=== PATIENT | female | born 1940 | race Caucasian/White ===

== ENCOUNTER 2017-01-18 11:14 | Inpatient (IN) | payer MEDICARE ==
[2017-01-18 12:43] LABS: ALT (SGPT) Less than 7 U/L (8-55); AST (SGOT) 10 U/L (5-34); Alkaline Phosphatase 142 U/L (40-150); Anion Gap 21 mmol/L (10-20); BUN (Urea Nitrogen) 52 mg/dL (9.8-20.1); Bilirubin, Total 0.4 mg/dL (0.2-1.2); Calc. Creatinine Clearance 0 mL/min (70-130); Calcium 9.5 mg/dL (7.8-10.44); Chloride 109 mmol/L (98-107); Estimated GFR-MDRD 28; Globulin 3.5 g/dL (2.4-3.5); Lipase 48 U/L (8-78); Protein, Total 7.5 g/dL (6.0-8.3)
[2017-01-18 12:44] LABS: Band 24 % (5-11); Hematocrit 39.8 % (36.0-47.0); Mean Platelet Volume 9.6 fL (7.4-10.4); Neutrophil 70 % (42-75); Red Blood Cell (RBC) Count 5.03 mill/uL (4.20-5.40); Vacuoles SLIGHT; White Blood Cell (WBC) Count 18.6 thou/uL (4.8-10.8)
[2017-01-18 12:46] LABS: Carbon Dioxide 8 mmol/L (23-31)
[2017-01-18] MEDS ORDERED: Morphine 2 mg/2ml in 0.9% NaCl PF SYRINGE ONE (13:13)
[2017-01-18 13:30] LABS: Bilirubin Moderate (Negative); Blood, Urine Negative (Negative); Glucose, Urine (Dipstick) Negative (Negative); Ketone, Urine Trace mg/dL (Negative); Nitrite Negative (Negative); Protein, Urine (Dipstick) 30 mg/dL (Neg-Trace); Urobilinogen 0.2 mg/dL (0.2-1.0)
[2017-01-18 13:35] LABS: Bacteria/HPF Rare-Few HPF (None Seen); Hyaline Casts/LPF 4-6 HYALINE CAST LPF (0-3 Hyaline); RBC/HPF 0-3 HPF (0-3); Squamous Epithelial 21-50 HPF (0-3)
[2017-01-18 13:47] LABS: Yeast-All Forms None Seen HPF (None Seen)
[2017-01-18] MEDS ORDERED: Benzonatate 100 MG CAP PO PRN (15:50)
[2017-01-18] MEDS ORDERED: Loratadine 10 MG TAB PO PRN (15:50)
[2017-01-18] MEDS ORDERED: Diabetic Tussin 200 MG/10 ML UDCUP PO PRN (15:50)
[2017-01-18] MEDS ORDERED: Ondansetron HCl/PF 4 MG/2 ML Vial IVP PRN (15:50)
[2017-01-18] MEDS ORDERED: traMADol HCl 50 MG TAB PO PRN (15:50)
[2017-01-18] MEDS ORDERED: Calcium Carbonate 500 MG ChewTAB PO PRN (15:50)
[2017-01-18] MEDS ORDERED: Nitroglycerin 0.4 MG TAB (25 Tab Bottle) SL PRN (15:50)
[2017-01-18] MEDS ORDERED: hydrALAZINE 20 MG/ML VIAL SLOW IVP PRN (15:50)
[2017-01-18] MEDS ORDERED: Mag-Al 1200 mg/1200 mg/30 ML UDCUP PO PRN (15:50)
[2017-01-18] MEDS ORDERED: Acetaminophen 325 MG TAB PO PRN (15:50)
--- NOTE | 2017-01-18 16:02 | CT ---
CT ABDOMEN AND PELVIS WITHOUT CONTRAST: Date: 01/18/17 HISTORY: Crohn's. Worsening pain. COMPARISON: None available. FINDINGS: There is atelectasis in the lung bases. No pericardial effusion. Gallbladder is moderately distended without inflammatory stranding. There are nonobstructive bilateral renal calculi. No hydroureteronephrosis. There is focal aneurysmal dilatation of the infrarenal abdominal aorta which measures up to 3.8 cm. T his is for a length of approximately 3.0 cm. Distal to this, just above the iliac bifurcation, the ao rta is ectatic, measuring up to 2.5 cm. Severe vascular calcification of the aortoiliac system. There is lack of normal haustrations of the colon. Submucosal fatty infiltration of the terminal ileu m, cecum, and ascending colon indicative chronic inflammatory bowel disease. There are also multiple areas of submucosal edema and thickening of the mucosa throughout the ileum and jejunum. Bones are severely osteopenic. There is sclerosis of the femoral heads bilaterally with articular rani face depression. Old compression fracture of T9. IMPRESSION: 1. Nonobstructive bilateral renal calculi. 2. Findings suggeting chronic fibrostenotic Crohn's disease without areas of definite active inflamm ation, although limited without intravenous contrast. 3. Focal aneurysmal dilatation of the distal abdominal aorta measuring up to 3.4 cm for a length of 3.7 cm with a second focus of focal ectasia just at the iliac bifurcation measuring 2.5 cm for a cayla th of 2.0 cm. 4. Severe osteopenia with sclerosis of the femoral heads bilaterally without articular surface colla pse. 5. Old compression fracture of T9. 6. Distention of the gallbladder without secondary signs of acute cholecystitis. This could be seque lae of patient's lack of eating solid food. POS: [facility]
[2017-01-18] MEDS ORDERED: Morphine PF 1 MG/ML SYR IVP PRN (16:03)
--- NOTE | 2017-01-18 16:05 | HP ---
DATE OF ADMISSION: 01/18/2017 PRIMARY CARE PHYSICIAN: Binta Marshall M.D. CHIEF COMPLAINT: Abdominal pain. HISTORY OF PRESENTING ILLNESS: Ms. Robert is a very pleasant 76-year-old female with past medical hi story of Crohn's disease; CREST syndrome as well as hypertension, who presented to the emergency room with the above-mentioned complaint. History is mainly obtained by the patient herself and [facility] medical records have been reviewed. Case has been discussed with the admitting ER physician, Dr. Jesse whitehead. Ms. Robert reports that she has been having increased abdominal pain over the last 5 days. holiday was just yesterday, so she did not come to the hospital and would rather wait. Her abdom inal pain has persisted. She describes it as a sharp pain located mainly in the upper central portio n going in band formation to her back. It is associated with significant diaphoresis and is colicky in nature. She denies any nausea or vomiting. She does have chronic diarrhea and has not noticed an y increased frequency of diarrhea. She has not noticed any blood in her diarrheal stools. She denie s any fever, chills, or any recent illnesses. She is currently not on any medications for her histor y of Crohn's disease. She used to see Gastroenterology, Dr. Ruano in the past, but has not done that in several years. She feels that she was at treatment at one point of time, but nothing has worked a nd for now she is rather controlled with dietary modification. She definitely has decrease in appeti te and is unable to eat much. She has been only drinking Pedialyte for the last 5 or 6 days. She is on Plavix for her history of peripheral vascular disease and has been compliant with her medication. She is also on 5 mg of prednisone daily, which she is also still taking. She denies any dysuria, h ematuria, frequency or urgency. Upon presentation to the emergency room, her blood pressure was in the lower side at 102/63 with hear t rate of 97. She was tender to palpation on examination. A CT scan was ordered for her, which show ed inflammatory changes involving the entire colon as well as mucosal thickening in the ileum in mult iple locations. She has infrarenal abdominal aortic aneurysm measuring 3 cm as well. These findings were consistent with acute Crohn's flare. She has received IV Solu-Medrol in the Emergency Room muriel real with IV fluids and is hemodynamically stable. She is now being admitted for acute Crohn's disease . PAST MEDICAL HISTORY: 1. CREST syndrome. 2. Hypertension. 3. Peripheral arterial disease status post right AKA. 4. History of hypertension. 5. COPD. 6. Chronic kidney disease. 7. Coronary artery disease. 8. Clostridium difficile colitis. PAST SURGICAL HISTORY: 1. Right above the knee amputation. 2. Carotid stenting on the right side. 3. Coronary artery bypass graft. 4. Stenting in both legs. ALLERGIES: PENICILLIN. SOCIAL HISTORY: She is . She used to live with her daughter, but unfortunately her daughter got killed in a car accident last February. Her son has moved to stay with her from [place]. She has no history of drug, tobacco or alcohol abuse, but has been a former smoker. She has smoked for a to dianne above 62 years. FAMILY HISTORY: There is no known family history of any inheritable disorders or diseases. No histo ry of colon cancer. CURRENT MEDICATIONS: As listed in the emergency room record include pentoxifylline 400 mg b.i.d., No rco as needed, gabapentin 300 t.i.d., prednisone 5 mg daily, mirtazapine 15 mg daily, Crestor 5 mg da zohreh, cilostazol 50 mg b.i.d., Lexapro 10 mg daily, Plavix 75 mg daily, aspirin 81 mg daily, lisinopri l 10 mg daily, and tacrolimus topical solution. REVIEW OF SYSTEMS: The following complete review of systems was negative, unless otherwise mentioned in the HPI or below: Constitutional: Weight loss or gain, ability to conduct usual activities. Skin: Rash, itching. Eyes: Double vision, pain. ENT/Mouth: Nose bleeding, neck stiffness, pain, tenderness. Cardiovascular: Palpitations, dyspnea on exertion, orthopnea. Respiratory: Shortness of breath, wheezing, cough, hemoptysis, fever or night sweats. Gastrointestinal: Poor appetite, abdominal pain, heartburn, nausea, vomiting, constipation, or diarr hea. Genitourinary: Urgency, frequency, dysuria, nocturia. Musculoskeletal: Pain, swelling. Neurologic/Psychiatric: Anxiety, depression. Allergy/Immunologic: Skin rash, bleeding tendency. It is negative except for those mentioned in the history and physical. LABORATORY DATA AND IMAGING: Her CBC shows leukocytosis with WBCs at 18.6 with 24% bands. Hemoglobi n, hematocrit and platelet count are within normal limits. Serum chemistries show sodium of 137, bic arb at 8, chloride 109, anion gap of 21, BUN 52, creatinine 1.76, lipase is 48. Urinalysis shows mod erate bilirubin and trace ketones. CT scan of the abdomen and pelvis as per above. Formal report is pending at this time. PHYSICAL EXAMINATION: VITAL SIGNS: Most recent vital signs include blood pressure 149/58, pulse of 81, respirations 16, sa turating 100% on room air, and temperature 97.7. GENERAL: She appears weak, pale, and cachectic, but in no acute distress. She is awake, alert, and oriented x3. HEENT: Mucous membrane is dry. Multiple oral telangiectasias noticed. Head is normocephalic, atrau matic. Temporal wasting noticed. Pupils are equal and reactive to light and accommodation. NECK: Supple without any lymphadenopathy, JVD or bruit. CHEST: Clear to auscultation without any wheezing, rales or rhonchi. Rate and rhythm is regular wit hout any murmur, rubs or gallops. ABDOMEN: Nontender to palpation per me, but the patient has received pain medications in the ER. No guarding, rebound or rigidity noticed. EXTREMITIES: Free of any clubbing or edema. She has sinuses of her fingertips consistent with Jennifer ud's phenomenon. SKIN: Shows telangiectasias spread throughout the body, especially in her palms and foot. She also has scleroderma open scar on her left oropeza which is currently in a bandage. NEUROLOGIC: Nonfocal. PSYCHIATRIC: Normal affect. IMPRESSION AND PLAN: 1. Abdominal pain secondary to acute Crohn's disease. The patient will be hospitalized and we will continue the intravenous fluids for now. She will be kept n.p.o. and we will consult Gastroenterolog y for further recommendations. However, at this point, we will continue IV steroids which she has st arted in the emergency room. She may or may not need colonoscopy during this hospitalization for fur ther evaluation including biopsies. We will get her records from Gastroenterology, Dr. Ruano's office in the morning as well. She is hemodynamically stable at this time. She has tested positive for oc cult blood in the emergency room and for this reason, we will hold her aspirin, Plavix, and Trental t onight. As above, she will be kept n.p.o. 2. Metabolic acidosis. This is secondary to dehydration, hypotension, and acute renal failure. She will be resuscitated with IV fluids and we will recheck labs in the morning. 3. Acute kidney insufficiency. Once again, this is due to poor p.o. intake and dehydration. We trenton l monitor her urine output and avoid any nephrotoxic medications. 4. History of CREST syndrome. Unfortunately, we have to hold all of her medications at this point u ntil cleared by Gastroenterology. We will resume her cilostazol and pentoxifylline once she can take oral medications. 5. History of peripheral arterial disease. Hold Plavix for now as stated above. 6. Hypertension, currently well controlled. We will avoid any antihypertensives given the low blood pressure on presentation. P.r.n. antihypertensives have been ordered. 7. Dyslipidemia. Resume Crestor once cleared for oral intake. 8. Code status: The patient wants to be a FULL CODE. I have discussed this with her in detail. 9. P.r.n. medication orders and deep venous thrombosis and gastrointestinal prophylaxis. DISPOSITION: She is being admitted for acute Crohn's flareup at this point. Estimated length of sta y is 2-3 midnight. Further management will depend upon her clinical course.
[2017-01-18 16:23] VITALS: BMI 22.2
[2017-01-18] MEDS: Sodium Chloride 0.9% 1,000 ML IV SCH (16:30)
[2017-01-18] MEDS: Famotidine/PF 20 mg/2ml Vial SLOW IVP SCH (20:19)
--- NOTE | 2017-01-19 01:45 | CON ---
DATE OF CONSULTATION: 01/18/2017 GI INPATIENT CONSULTATION NOTE REQUESTING PHYSICIAN: Mariela Richardson MD REASON FOR CONSULTATION: Possible Crohn's flare. HISTORY OF PRESENT ILLNESS: Eduardo Robert is a 76-year-old woman seen in the past by my GI colleagu e, Dr. Jordi Ruano. He evaluated her in December 2013 for complaints of chronic diarrhea. At that ti me, she had an EGD and a colonoscopy. The EGD showed only some small gastric AVMs and gastric biopsi es and duodenal biopsies were normal. The colonoscopy was also completely normal to the terminal ile um and random colon biopsies were completely normal as well. His impression was that she had IBS. S he was lost to follow up with him. In 2015, she had a couple of episodes of recurrent C. difficile i n the context of antibiotics after a knee surgery. She was treated with vancomycin and that evidentl y resolved. She has not been seen in our office since that time. Since that time, she reports that she has continued to have chronic episodic diarrhea. This is not e very day, but her stools are often watery and often several times per day and urgent. There is no me ingris or hematochezia ever. She really does not do with chronic abdominal pain. She is under the imp ression that she still has C. difficile, and she is also under the impression that she has Crohn's di sease though really no formal diagnosis has been made of Crohn's disease that I can see, and she has not had any recent stool testing. Over the past 5 days, she has developed generalized abdominal pain, this is colicky in nature, it com es and goes. It can get quite severe and essentially is a new thing for her. Her bowel habits reall y have not changed. She still had some intermittent diarrhea, but the abdominal pain was such that s he presented for further evaluation. She was admitted to the hospital today after a CT scan demonstr ated findings suggestive of possible chronic fibrostenotic Crohn's disease without areas of definite active inflammation. Essentially there are some areas of submucosal edema and thickening in the ileu m and jejunum and loss of normal haustrations of the colon with submucosal fatty infiltration in the right colon. Because of these findings and the patient's reported history of IBD, she was started on IV steroids tonight. Stool studies have not been sent. She is currently not having any abdominal p ain. She denies any recent weight loss. Note, she also has CREST syndrome and has been on low dose prednisone for this, but not taking it recently. Note, she also has a compelling history of pyoderma gangrenosum, and has an open wound on the left lower extremity from this. REVIEW OF SYSTEMS: Full review of systems including constitutional, head, eyes, ears, nose, throat, GI, , cardiovascular, respiratory, musculoskeletal, and neurologic systems is negative except as no paco in the HPI. PAST MEDICAL HISTORY: CREST syndrome, hypertension, peripheral arterial disease, status post right a [id number] amputation, hypertension, COPD, chronic kidney disease, coronary artery disease, herrera ry artery bypass graft, right-sided carotid stenting, Clostridium difficile infection in early 2016, stenting in both legs. ALLERGIES: PENICILLIN. MEDICATIONS: Pentoxifylline 400 mg b.i.d., [place] as needed, gabapentin 300 mg t.i.d., prednisone 5 m g daily, mirtazapine 15 mg daily, Crestor 5 mg daily, cilostazol 50 mg b.i.d., Lexapro 10 mg daily, P lavix 75 mg daily, aspirin 81 mg daily, lisinopril 10 mg daily, tacrolimus topical solution. FAMILY HISTORY: Negative for GI illness or malignancy. SOCIAL HISTORY: She is . She is a former smoker. No alcohol or drug abuse. PHYSICAL EXAMINATION: VITAL SIGNS: Temperature 97.4, pulse 88, blood pressure 131/84, 100% oxygen saturation on room air. GENERAL: A 76-year-old elderly woman, lying in bed comfortably, in no distress. SKIN: Characteristic changes of scleroderma. She has a large open wound on the left lower extremity , which is consistent with pyoderma gangrenosum. No jaundice. EYES: No scleral icterus. Extraocular movements are intact. ENT: Mucous membranes are moist, no oral lesions. LYMPH: No submandibular or supraclavicular lymphadenopathy. THYROID: Nontender to palpation. HEART: Regular rate and rhythm. LUNGS: Clear to auscultation bilaterally. ABDOMEN: Nondistended, bowel sounds present, soft, actually nontender to palpation throughout. No m asses or organomegaly appreciated. EXTREMITIES: The patient is status post a right aessn-dhn-cfav amputation. VESSELS: Radial pulses 2+ bilaterally. NEUROLOGICAL: Cranial nerves II through XII intact bilaterally. No focal deficits. LABORATORY STUDIES: WBC 18.6, hemoglobin 12, platelets 306, sodium 134, potassium 3.7, BUN 52, creat inine 1.76, glucose 90, lipase 48. Total bilirubin 0.4, alkaline phosphatase 142, AST 10, ALT less t camacho 7, albumin 4.0. FOBT positive. Other stool studies have not been sent. IMAGING STUDIES: CT of the abdomen and pelvis was performed today. This demonstrated multiple areas of mucosal thickening and edema in the ileum and jejunum. It also demonstrated fatty infiltration i n the terminal ileum and through the right colon and loss of normal haustrations of the colon. There is moderate gallbladder distention without inflammatory changes and a 3.8 cm abdominal aortic aneury sm. She also has severe osteopenia. ASSESSMENT AND PLAN: 1. Generalized abdominal pain. 2. Abnormal CT scan of the small bowel, suggestive of enteritis versus possible small bowel inflamma tory bowel disease. 3. Chronic diarrhea. 4. CREST syndrome. This is an interesting and somewhat difficult case. The patient's underlying di agnosis is really not clear. She had a completely normal EGD and colonoscopy in December 2013 with n ormal colon biopsies, normal small bowel biopsies, and normal gastric biopsies. She has never actual ly formally received a diagnosis of inflammatory bowel disease, and has not been on treatment for suc h. On the other hand, her CT findings are certainly suggestive of possible chronic inflammatory smal l bowel disease with right colonic involvement as well. She does have pyoderma gangrenosum, which is often associated with inflammatory bowel disease. Her symptoms of chronic diarrhea really are not t hat striking and the abdominal pain is all new. At this point, I would suggest getting stool studies to rule out enteric pathogens. She does have a history of Clostridium difficile documented just over a year ago. I agree with the initiation of IV steroids for now, and hopefully, the patient will have symptomatic improvement with this. I think if the stool studies are negative and patient's symptoms persist, then she is going to need repeat endo scopic evaluation, and we could plan colonoscopy later this admission. I wonder if the patient's CT findings might actually represent manifestations of her underlying scleroderma rather than chronic in flammatory bowel disease, and if so, I would not label her as having Crohn's disease. Thank you for the consultation. We will follow along for stool study results tomorrow. Please call with questions or concerns.
[2017-01-19 06:05] LABS: Anion Gap 15 mmol/L (10-20); BUN (Urea Nitrogen) 34 mg/dL (9.8-20.1); Calc. Creatinine Clearance 40 mL/min (70-130); Calcium 8.2 mg/dL (7.8-10.44); Carbon Dioxide 10 mmol/L (23-31); Chloride 116 mmol/L (98-107); Estimated GFR-MDRD 52
[2017-01-19] MEDS: Sodium Chloride 0.9% 1,000 ML IV SCH ×2 (06:21→18:16)
[2017-01-19 06:24] LABS: #Lymphocytes 0.9 thou/uL (1.20-3.40); #Monocytes 0.2 thou/uL (0.11-0.59); #Neutrophils 12.8 thou/uL (1.40-6.50); %Eosinophils 0.1 % (0.0-10.0); %Lymphocytes 6.2 % (21.0-51.0); %Monocytes 1.3 % (0.0-10.0); Hematocrit 33.1 % (36.0-47.0); Mean Platelet Volume 9.5 fL (7.4-10.4); Red Blood Cell (RBC) Count 4.23 mill/uL (4.20-5.40); White Blood Cell (WBC) Count 13.8 thou/uL (4.8-10.8)
--- NOTE | 2017-01-19 07:31 | PDOC.PN ---
- Subjective Encounter Start Date: 01/19/17 Encounter Start Time: 07:31 Subjective: feels better. no more abdominal pain or diarrhea.no fever/chills. -: no dysuria - Objective MAR Reviewed: Yes Vital Signs & Weight: Vital Signs (12 hours) Temp Pulse Resp BP BP Pulse Ox 01/19/17 07:23 97.4 F L 81 18 143/79 H 99 01/19/17 04:00 97.4 F L 81 20 142/84 H 96 01/19/17 00:00 97.9 F 78 18 134/79 95 01/18/17 20:00 97.4 F L 87 16 137/81 94 L I&O: 01/18/17 01/19/17 01/20/17 06:59 06:59 06:59 Intake Total 1430 Balance 1430 Result Diagrams: 01/19/17 05:18 01/19/17 05:18 Additional Labs: Microbiology 01/18/17 12:02 Stool - Pending Stool Occult Blood (SILVANO) - Final Laboratory Tests 01/18/17 01/18/17 01/19/17 12:01 12:01 05:18 WBC 18.6 H Hgb 12.0 BUN 52 H 34 H Creatinine 1.76 H 1.03 01/19/17 05:18 WBC 13.8 H Hgb 10.4 L BUN Creatinine Laboratory Tests 01/18/17 01/19/17 01/19/17 12:01 05:18 08:32 Creatinine 1.76 H 1.03 25-OH Vitamin D Total 24.7 L Radiology Reviewed by me: Yes Phys Exam - Physical Examination Constitutional: NAD HEENT: PERRLA, moist MMs, sclera anicteric, oral pharynx no lesions Neck: no nodes, no JVD, supple, full ROM Respiratory: no wheezing, no rales, no rhonchi, clear to auscultation bilateral Cardiovascular: RRR, no significant murmur, no rub, gallop Gastrointestinal: soft, non-tender, no distention, positive bowel sounds Musculoskeletal: no edema, pulses present lower Leg wound ,chronic Neurological: non-focal, normal sensation, moves all 4 limbs Psychiatric: normal affect, A&O x 3 Skin: no rash Dx/Plan (1) Abdominal pain Code(s): R10.9 - UNSPECIFIED ABDOMINAL PAIN Status: Acute (2) Metabolic acidosis Code(s): E87.2 - ACIDOSIS Status: Acute (3) AUBREE (acute kidney injury) Code(s): N17.9 - ACUTE KIDNEY FAILURE, UNSPECIFIED Status: Acute (4) Inflammatory bowel diseases (IBD) Code(s): K52.9 - NONINFECTIVE GASTROENTERITIS AND COLITIS, UNSPECIFIED Status : Suspected (5) Malnutrition Code(s): E46 - UNSPECIFIED PROTEIN-CALORIE MALNUTRITION Status: Chronic Qualifiers: Protein-calorie malnutrition severity: severe (6) H/O Clostridium difficile infection Code(s): Z86.19 - PERSONAL HISTORY OF OTHER INFECTIOUS AND PARASITIC DISEASES Status: Chronic (7) Amputated below knee Status: Chronic Qualifiers: Laterality: right Qualified Code(s): Z89.511 - Acquired absence of right leg below knee (8) Stasis ulcer of left lower extremity Code(s): I83.029 - VARICOSE VEINS OF LEFT LOWER EXTREMITY W ULCER OF UNSP SITE Status: Chronic Comment: ? Pyoderma gangrenosum (9) CREST syndrome Code(s): M34.1 - CR(E)ST SYNDROME Status: Chronic (10) Peripheral vascular disease Code(s): I73.9 - PERIPHERAL VASCULAR DISEASE, UNSPECIFIED Status: Chronic (11) Vitamin D deficiency Code(s): E55.9 - VITAMIN D DEFICIENCY, UNSPECIFIED Status: Chronic - Plan DVT proph w/SCDs cont Iv steroids. GI following.will need colonoscopy w Biposy -: cont IVF. Cr and acidosis improving. -: CLd for now. tolerating well. -: restart select home meds. -: cont to hold plavix.am labs * .start Vit D+Ca supplemets Review of Systems - Review of Systems Constitutional: Malaise. negative: Fever, Chills, Sweats, Weakness, Other Respiratory: negative: Cough, Dry, Shortness of Breath, Hemoptysis, SOB with Excertion, Pleuritic Pain, Sputum, Wheezing Cardiovascular: negative: Chest Pain, Palpitations, Orthopnea, Paroxysmal Noc. Dyspnea, Edema, Light Headedness, Other Gastrointestinal: negative: Nausea, Vomiting, Abdominal Pain, Diarrhea, Constipation, Melena, Hematochezia, Other Genitourinary: negative: Dysuria, Frequency, Incontinence, Hematuria, Retention , Other Musculoskeletal: negative: Neck Pain, Shoulder Pain, Arm Pain, Back Pain, Hand Pain, Leg Pain, Foot Pain, Other Neurological: negative: Weakness, Numbness, Incoordination, Change in Speech, Confusion, Seizures, Other - Medications/Allergies Allergies/Adverse Reactions: Allergies Allergy/AdvReac Type Severity Reaction Status Date / Time No Known Drug Allergies Allergy Verified 01/18/17 16:32 Medications: Current Medications Acetaminophen (Tylenol) 650 mg PO Q4H PRN PRN Reason: Headache/Fever or Pain Al Hydroxide/Mg Hydroxide (Maalox) 30 ml PO Q6H PRN PRN Reason: Heartburn or Indigestion Benzonatate (Tessalon) 100 mg PO Q4H PRN PRN Reason: Cough Calcium Carbonate (Tums) 1,000 mg PO Q4H PRN PRN Reason: Heartburn or Indigestion Famotidine (Pepcid) 20 mg SLOW IVP Q12HR [facility] Last Admin: 01/18/17 20:19 Dose: 20 mg Guaifenesin (Robitussin Sf) 200 mg PO Q4H PRN PRN Reason: Cough Hydralazine HCl (Apresoline) 10 mg SLOW IVP Q4H PRN PRN Reason: Systolic BP > 170 Sodium Chloride (Normal Saline 0.9%) 1,000 mls @ 75 mls/hr IV .[id number] [facility] Last Admin: 01/19/17 06:21 Dose: 1,000 mls Loratadine (Claritin) 10 mg PO DAILYPRN PRN PRN Reason: Sinus Symptoms Methylprednisolone Sodium Succinate (Solu-Medrol) 40 mg IVP Q6HR [facility] Last Admin: 01/19/17 05:17 Dose: 40 mg Morphine Sulfate (Duramorph) 2 mg IVP Q4H PRN PRN Reason: Severe Pain (7-10) Nitroglycerin (Nitrostat) 0.4 mg SL Q5MIN PRN PRN Reason: Chest Pain Ondansetron HCl (Zofran) 4 mg IVP Q6H PRN PRN Reason: Nausea/Vomiting Tramadol HCl (Ultram) 50 mg PO Q4H PRN PRN Reason: Moderate Pain (4-6)
[2017-01-19] MEDS: Famotidine/PF 20 mg/2ml Vial SLOW IVP SCH ×2 (09:31→20:12)
[2017-01-19] MEDS ORDERED: TACROLIMUS TOP PRN (10:04)
[2017-01-19] MEDS ORDERED: PATIENT'S HOME MEDICATION TOP PRN (10:14)
--- NOTE | 2017-01-19 14:49 | PRG ---
DATE OF SERVICE: 01/19/2017 GI INPATIENT DAILY PROGRESS NOTE SUBJECTIVE: Ms. Robert says her abdominal pain is a bit better today, still comes and goes, but more mild. She has had 2 loose bowel movements so far today, but did not alert nursing to collect any st ool studies we ordered. She is tolerating clear liquid diet, just fine. PHYSICAL EXAMINATION: VITAL SIGNS: Temperature 97.2, pulse 79, blood pressure 127/79, 96% oxygen saturation on room air. GENERAL: No acute distress. HEART: Regular rate and rhythm. LUNGS: Clear to auscultation bilaterally. ABDOMEN: Soft, bowel sounds present. Some tenderness to palpation in the lower abdomen, but no guar ding or rebound tenderness. EXTREMITIES: No peripheral edema. LABORATORY STUDIES: WBC 13.8, hemoglobin 10.4, and platelets 247. Sodium 137, potassium 3.7, BUN 34 , creatinine down to 1.03. Vitamin D is 24.7. ASSESSMENT AND PLAN: 1. Generalized abdominal pain, improving. 2. Abnormal CT scan of the small bowel. 3. Chronic diarrhea. 4. Crest syndrome. We will go ahead and plan for colonoscopy tomorrow for further investigation, we will plan to repeat colon biopsies and try to get a good examination of the terminal ileum as well. The goal is to try to differentiate between Crohn's disease versus gastrointestinal involvement of h er scleroderma as the underlying causes for her chronic diarrhea and her CT findings. The patient un derstands and agrees with the plan. She is doing clinically well, if everything looks good on colono scopy tomorrow, she could potentially be discharged after the procedure depending on how things go.
[2017-01-19] MEDS: Gabapentin 300 MG CAP PO SCH ×2 (15:59→20:12)
[2017-01-19] MEDS: Calcium Carbonate + Vit D 1 TAB PO SCH (16:06)
[2017-01-19] MEDS ORDERED: GoLYTELY 4,000 ml Bottle PO SCH (18:00)
[2017-01-19 20:11] VITALS: BP 151/88
[2017-01-19] MEDS ORDERED: Mirtazapine 15 MG TAB PO SCH (21:00)
[2017-01-20 06:22] LABS: #Lymphocytes 1.1 thou/uL (1.20-3.40); #Monocytes 0.3 thou/uL (0.11-0.59); %Basophils 0.3 % (0.0-1.0); %Eosinophils 0.2 % (0.0-10.0); %Lymphocytes 10.9 % (21.0-51.0); %Monocytes 2.9 % (0.0-10.0); Hematocrit 34.5 % (36.0-47.0); Mean Platelet Volume 9.2 fL (7.4-10.4); Red Blood Cell (RBC) Count 4.42 mill/uL (4.20-5.40); White Blood Cell (WBC) Count 10.4 thou/uL (4.8-10.8)
[2017-01-20 06:39] LABS: Anion Gap 16 mmol/L (10-20); BUN (Urea Nitrogen) 30 mg/dL (9.8-20.1); Calc. Creatinine Clearance 44 mL/min (70-130); Calcium 7.9 mg/dL (7.8-10.44); Carbon Dioxide 14 mmol/L (23-31); Chloride 112 mmol/L (98-107); Estimated GFR-MDRD 58
[2017-01-20] MEDS: Sodium Chloride 0.9% 1,000 ML IV SCH (07:51)
[2017-01-20] MEDS ORDERED: Escitalopram Oxalate 10 mg Tablet PO SCH (09:00)
[2017-01-20] MEDS ORDERED: Ondansetron HCl/PF 4 MG/2 ML Vial IVP PRN (09:36)
[2017-01-20] MEDS ORDERED: Promethazine HCl 25 MG/ML VIAL IM PRN (09:36)
[2017-01-20] MEDS ORDERED: Promethazine HCl 25 MG/ML VIAL SLOW IVP PRN (09:36)
[2017-01-20] MEDS ORDERED: Ciprofloxacin Lactate/D5W 200 MG in Premix Bag 1 BAG IVPB SCH (10:00)
[2017-01-20] MEDS: Famotidine/PF 20 mg/2ml Vial SLOW IVP SCH (10:44)
[2017-01-20] MEDS: Gabapentin 300 MG CAP PO SCH (10:44)
[2017-01-20] MEDS: Calcium Carbonate + Vit D 1 TAB PO SCH (10:45)
[2017-01-20 11:58] VITALS: TEMP 97.9
--- NOTE | 2017-01-20 12:38 | PRG ---
GI INPATIENT DAILY PROGRESS NOTE DATE OF SERVICE: 01/20/2017 Some stool studies just came back on Ms. Robert. C. difficile was negative. Campylobacter antigen i s positive, but Campylobacter is not really growing out on the stool culture. An acute Campylobacter infection could certainly explain the endoscopic appearance from earlier today. We will need to see what the biopsies show. Regardless, I do still have suspicion for Crohn's disease. No change in re commendations to discharge on prednisone 40 mg taper, taper over 20 days, as well as Lialda 2.4 grams daily and close GI followup. No further specific treatment needed for Campylobacter infection, as t his should be self-limited and her symptoms have much improved already.
--- NOTE | 2017-01-20 14:30 | OP ---
GI ENDOSCOPY NOTE DATE OF PROCEDURE: 01/20/2017 SURGEON: Fady Amador M.D. CUSTOMER SUCCESS DIRECTOR SURGEON: None. PROCEDURE: Colonoscopy with biopsies. INDICATIONS: 1. Generalized abdominal pain. 2. Chronic diarrhea. 3. Abnormal CT scan of the small bowel and colon, suggestive of possible Crohn's disease. MEDICATIONS: See anesthesia record. FINDINGS: After discussion of the risks, benefits and alternatives of the procedure, informed consen t was obtained and witnessed. Pre-endoscopic cardiopulmonary examination was satisfactory. Timeout was performed before sedation was achieved. Sedation was achieved with anesthesia assistance in the endoscopy unit. Digital rectal exam was performed, which was unremarkable. A Pentax adult colonosco pe was inserted into the anus and passed forward to the cecum in the usual fashion. Cecal base was i dentified by the appendiceal orifice as well as the ileocecal valve. The quality of the bowel prep w as fair, but adequate. The endoscope was advanced into the terminal ileum and advanced 15 cm into th e terminal ileum. The terminal ileal mucosa showed severe ileitis with multiple erosions and a few d eep ulcerations. There is no bleeding noted. Multiple biopsies were obtained from the terminal ileu m for histology. The endoscope was then slowly withdrawn in a gradual and circumferential manner wit h careful examination of the entire colonic mucosa. In the cecum, there is a moderate to severe coli tis with multiple shallow ulcerations. Again, no bleeding noted. Multiple biopsies were obtained fr om the cecum for histology from the mid ascending colon all the way to the rectum, the colonic mucosa appears normal. Rectum appears normal and careful forward views. The colonoscope was then complete ly withdrawn and the patient allowed to recover. The patient tolerated the procedure well. There we re no immediate post-procedure complications. IMPRESSION: 1. Severe ileitis in the terminal ileum to 15 cm examined, with multiple erosions and a few deep ulc erations, biopsied. 2. Colitis in the cecum, with multiple shallow ulcerations, biopsied. 3. Remainder of the colonic exam is normal. RECOMMENDATIONS: 1. Follow up pathology results on the ileal and colon biopsies. This certainly has an endoscopic ap pearance suggestive of Crohn's disease. 2. Advance diet. 3. Okay for hospital discharge from a GI perspective. Plan for close followup in the GI clinic with Dr. Ruano. 4. Upon discharge, we would give prescriptions for Lialda 2.4 grams daily, and prednisone 40 mg justice y with a 20-day taper down by 10 mg every 5 days until complete follow up in the meantime.
[2017-01-20] MEDS ORDERED: Lidocaine 1% PF 5 ML VIAL ONE (17:35)
[2017-01-20] MEDS ORDERED: Propofol 200 MG/20 ML VIAL ONE (17:35)
--- NOTE | 2017-01-20 19:55 | DIS ---
DATE OF ADMISSION: 01/18/2017 DATE OF DISCHARGE: 01/20/2017 CONDITION AT THE TIME OF DISCHARGE: Stable and improved. DISCHARGE DIAGNOSES: 1. Acute Crohn disease. 2. History of CREST syndrome. 3. History of peripheral arterial disease. 4. Acute kidney insufficiency. 5. Metabolic acidosis. 6. Severe protein-calorie malnutrition. 7. History of right [id number]-hrpf amputation. 8. Left lower extremity ulcer, possibly pyoderma gangrenosum. 9. Vitamin D deficiency. DISCHARGE MEDICATIONS: Include Lialda 2.4 grams daily, calcium plus vitamin D 1 tablet p.o. b.i.d., prednisone 40 mg and tapering doses over 20 days. Resume the following home medications: Gabapentin 300 mg p.o. t.i.d., [place] as needed, Trental 400 m g p.o. b.i.d., Pletal 50 mg daily, Remeron 50 mg at bedtime, Crestor 5 mg daily, aspirin 81 mg daily, Lexapro 10 mg daily and lisinopril 10 mg daily. PRIMARY CARE PHYSICIAN: Dr. Binta Marshall. DISCHARGE FOLLOWUP: The patient has an outpatient followup with her timber incisor operator, Dr. Cleo puentes. Follow up with primary care physician and Gastroenterology, Dr. Fady Amador. IN HOUSE CONSULTATION: Gastroenterology, Dr. Fady Amador. PROCEDURES DONE IN THE HOSPITAL: Include; 1. CT scan of the abdomen and pelvis upon presentation, which showed findings suggestive of chronic fibrostenotic Crohn disease. Severe osteopenia. Focal aneurysmal dilatation of distal abdominal aor ta measuring 3.4 cm x 3.7 cm. Her colon hacks normal haustrations. Submucosal fatty infiltration is seen in the terminal ileum, cecum and ascending colon indicative of chronic inflammatory bowel disea se. Multiple areas of submucosal edema and thickening of the mucosa seen throughout the ileum and je junum. 2. Colonoscopy by Dr. Amador on 01/20/2017, which showed severe ileitis in the terminal ileum to 15 cm . Multiple erosions and few deep ulcerations that were biopsied. Colitis in the cecum also noticed with multiple shallow ulceration. HISTORY OF PRESENT ILLNESS: Ms. Robert is a pleasant 76-year-old female with history of CREST syndro me and peripheral arterial disease who presented to the ER with complaints of abdominal pain, poor ap petite, nausea and some chronic diarrhea. The patient gave history that she has Crohn disease, but i t was not noted in her chart. She underwent a CT scan of the abdomen and pelvis which showed finding s consistent with chronic inflammatory bowel disease as described above. She was started on high dos e steroids and was admitted for further evaluation and Gastroenterology was consulted. Please see ad mission history and physical for further details. She was hemodynamically stable upon presentation. Her Plavix was held along with aspirin for possible colonoscopy. HOSPITAL COURSE: The patient remained rather asymptomatic throughout the rest of her hospitalization . She underwent a colonoscopy by GI. The colonoscopy was also consistent with possible IBD. Biopsi es were taken. After colonoscopy, the patient was desirous to go home and was cleared by GI for disc harge as well. She is hemodynamically stable. At this time, she will restart her aspirin, but hold her Plavix. She is instructed to follow up with her timber incisor operator and has an appointment tomorrow to discuss the need for long-term Plavix. The patient is addressed for GI bleed because of inflammatory bowel disease and bloody diarrhea. She did have leukocytosis upon presentation, which improved. She also had evidence of metabolic acid osis and acute kidney insufficiency, which has also improved. She was found to have severe osteopenia and vitamin D levels were checked, which were low at 24.7. S he was started on vitamin with calcium supplements. She was seen and examined prior to discharge. Discharge plan was discussed with the patient and her son present in the room and they verbalized understanding. PHYSICAL EXAMINATION: This morning include; VITAL SIGNS: Temperature 97.6, heart rate 76, respirations 20, saturating 100% on room air and blood pressure 151/80. GENERAL: No acute distress. Awake, alert and oriented x3. She appears somewhat pale, otherwise no acute distress. CHEST: Clear to auscultation bilaterally. ABDOMEN: Soft, nontender and nondistended with positive bowel sounds. LABORATORY DATA: Sodium 139, bicarbonate 14, BUN 30, creatinine 0.94. CBC shows WBCs at 10.4. It w as 18.6 upon presentation. Hemoglobin is 11. DISCHARGE INSTRUCTIONS: The patient is instructed to keep her followup appointment and follow up [facility] Gastroenterology closely and she verbalized understanding. She was started on Lialda by a Gastroenterology and was provided a prescription for the same for poss ible Crohn's disease. She will follow up with GI for the results of the biopsy. Total time spent 32 minutes.
== END 2017-01-20 13:42 | disposition home or self-care (01) | DRG 385 ==
LOC: ERS 11:14 → T4-A 15:46
PROVIDERS: ADMIT Internal Medicine; ATTEND Internal Medicine
PROC: 0DBH8ZX Excision of Cecum, Via Natural or Artificial Opening Endoscopic, Diagnostic (ICD-10-PCS; principal; 2017-01-20)
PROC: 0DBB8ZX Excision of Ileum, Via Natural or Artificial Opening Endoscopic, Diagnostic (ICD-10-PCS; 2017-01-20)
DX: K50.80 Crohn's disease of both small and large intestine without complications (principal); E43 Unspecified severe protein-calorie malnutrition; N17.9 Acute kidney failure, unspecified; E87.2 Acidosis; K63.3 Ulcer of intestine; M34.1 CR(E)ST syndrome; L97.929 Non-pressure chronic ulcer of unspecified part of left lower leg with unspecified severity; J44.9 Chronic obstructive pulmonary disease, unspecified; L88 Pyoderma gangrenosum; I73.9 Peripheral vascular disease, unspecified; Z79.01 Long term (current) use of anticoagulants; Z68.22 Body mass index [BMI] 22.0-22.9, adult; Z89.511 Acquired absence of right leg below knee; E55.9 Vitamin D deficiency, unspecified; M85.80 Other specified disorders of bone density and structure, unspecified site; I12.9 Hypertensive chronic kidney disease with stage 1 through stage 4 chronic kidney disease, or unspecified chronic kidney disease; N18.9 Chronic kidney disease, unspecified; I25.10 Atherosclerotic heart disease of native coronary artery without angina pectoris; Z95.1 Presence of aortocoronary bypass graft
CPT/HCPCS: 36415; 74176; 80048; 80053; 81003; 81015; 82274; 82306; 83630; 83690; 85025; 87015; 87045; 87046; 87324; 87328; 87329; 87449; 87899; 96361; 96374; 96375; J0744; J2001; J2270; J2704; J2920; S0028

== ENCOUNTER 2017-02-04 09:47 | Inpatient (IN) | payer MEDICARE ==
[2017-02-04] MEDS ORDERED: Ondansetron HCl/PF 4 MG/2 ML Vial ONE (10:31)
[2017-02-04 10:37] LABS: Bilirubin Small (Negative); Blood, Urine Small (Negative); Glucose, Urine (Dipstick) Negative (Negative); Ketone, Urine 80 mg/dL (Negative); Nitrite Negative (Negative); Protein, Urine (Dipstick) 100 mg/dL (Neg-Trace); Urobilinogen 0.2 mg/dL (0.2-1.0)
[2017-02-04 10:42] LABS: Bacteria/HPF 3+ HPF (None Seen); Hyaline Casts/LPF 0-3 HYALINE CAST LPF (0-3 Hyaline); Squamous Epithelial 0-3 HPF (0-3)
[2017-02-04 10:44] LABS: Hematocrit 33.5 % (36.0-47.0); Mean Platelet Volume 9.3 fL (7.4-10.4); Red Blood Cell (RBC) Count 4.22 mill/uL (4.20-5.40)
[2017-02-04 10:57] LABS: Lactic Acid - Sepsis 1.7 mmol/L (0.5-2.2)
[2017-02-04 10:59] LABS: ALT (SGPT) 7 U/L (8-55); AST (SGOT) 15 U/L (5-34); Alkaline Phosphatase 103 U/L (40-150); Anion Gap 16 mmol/L (10-20); BUN (Urea Nitrogen) 10 mg/dL (9.8-20.1); Bilirubin, Total 0.5 mg/dL (0.2-1.2); Calc. Creatinine Clearance 0 mL/min (70-130); Carbon Dioxide 16 mmol/L (23-31); Chloride 111 mmol/L (98-107); Estimated GFR-MDRD 68; Globulin 2.6 g/dL (2.4-3.5); Lipase 14 U/L (8-78); Protein, Total 5.6 g/dL (6.0-8.3)
[2017-02-04 11:00] LABS: Band 15 % (5-11); Microcytosis SLIGHT = 6-15 cells (100X) (0-5/hpf); Neutrophil 68 % (42-75); Ovalocytes MODERATE= 6-15 cells (100X) (0-1/hpf); Polychromasia SLIGHT = 2-3 cells (100X) (0-2/hpf); Reactive Lymphocytes 1 % (0-10)
[2017-02-04] MEDS ORDERED: cefTRIAXone\\ROCEPHIN 2 GM in Sodium Chloride 0.9% 100 ML IVPB SCH (11:15)
[2017-02-04] MEDS ORDERED: Potassium Chloride 20 MEQ TAB ONE (11:31)
--- NOTE | 2017-02-04 12:26 | CT ---
CT OF THE ABDOMEN AND PELVIS WITH CONTRAST: COMPARISON: 01/18/17. HISTORY: Suprapubic and bilateral lower quadrant abdominal pain with burning with urination. TECHNIQUE: Multiple contiguous axial images were obtained in a CT of the abdomen and pelvis with contrast. Leandra nal reformats were performed. FINDINGS: There is hypodensity adjacent to the falciform ligament which may represent focal fatty infiltration. The gallbladder, kidneys, adrenal glands, spleen, and pancreas are unremarkable. No free air, free fluid, or stranding changes are seen in the ad or pelvis. There is air in the urinary bladder which may be from recent instrumentation. There is stable enlargement of the infrarenal aorta which measures 4.0 cm in size. No abdominal or p elvic lymphadenopathy are seen. The small bowel is normal in caliber. There is slight thickening of the wall of the cecum. No free air, free fluid, or stranding changes are seen in the abdomen or pelvis. IMPRESSION: 1. Stable abdominal aortic aneurysm. 2. Air in the urinary bladder may be from recent instrumentation. A urinary tract infection is also a possibility. 3. Wall thickening of the cecum may be secondary to inflammatory bowel disease. POS: DANNY
--- NOTE | 2017-02-04 16:11 | HP ---
PRIMARY CARE PHYSICIAN: Binta Marshall M.D. REASON FOR ADMISSION: Urinary tract infection and diarrhea. HISTORY OF PRESENT ILLNESS: A 76-year-old female who was admitted recently in our hospital on 2016. At that time, patient was having abdominal pain. She was treated for Crohn's exacerbation. D uring that admission, Dr. Amador was consulted and patient had colonoscopy which showed severe ileitis with multiple erosions and few deep ulceration as well as patient also had colitis in the cecum. The patient was treated with IV steroid while in hospital and upon discharge, patient was given tapering doses of prednisone. She was discharged home on 01/20/2017. After discharged from hospital, the pa raffi was not doing well. She was continued to have abdominal pain. She was not able to tolerate an y p.o. intake. Some medicines she has to take after food, but she was not able to tolerate food and that is why she was not taking medication as well. The patient reports that whenever she eats any ki nd of food, she gets diarrhea and her diarrhea is liquidy without any pus or blood, only food particl es. For the last 2-3 days, patient is becoming more and more weak. She lost several pounds of weigh t over the last couple of months and patient also reports urinary tract infection symptoms with dysur ia and increased frequency. The patient is becoming more and more weak. She is having difficulty am bulating because of overall weakness and that is why patient's son brought her to the emergency room for evaluation. Today in the emergency room, patient had leukocytosis, hypokalemia and finding sugge stive of urinary tract infection. CT of the abdomen and pelvis was done which showed stable abdomina l aortic aneurysm and wall thickening of the cecum consistent with inflammatory bowel disease. At th is point, patient will need hydration, IV antibiotic therapy and control of her diarrhea with anti-in flammatory medication. Patient is not tolerating any p.o. intake and that is why we have to keep thi s patient in the hospital. PAST MEDICAL HISTORY: CREST syndrome, hypertension, peripheral arterial disease requiring right knee amputation, hypertension, COPD, chronic kidney disease stage 3, coronary artery disease, history of C. diff colitis, history of Crohn's disease. PAST SURGICAL HISTORY: Right above knee amputation, carotid artery stenting on the right side, CABG, stenting in both legs, lumpectomy and tonsillectomy. PAST PSYCHIATRIC HISTORY: Anxiety and depression. ALLERGIES: No known drug allergies. CURRENT HOME MEDICATIONS: Pentoxifylline 400 mg twice daily, Ackerman 5 one tablet q.6 hourly p.r.n., g abapentin 300 mg p.o. 3 times daily, prednisone 5 mg p.o. daily, Remeron 15 mg p.o. daily, Crestor 5 mg p.o. daily, Pletal 50 mg twice daily, Lexapro 10 mg p.o. daily, Plavix 75 mg p.o. daily, aspirin 8 1 mg p.o. daily, and lisinopril 10 mg p.o. daily. REVIEW OF SYSTEMS: The following complete review of systems was negative, unless otherwise mentioned in the HPI or below: Constitutional: Weight loss or gain, ability to conduct usual activities. Skin: Rash, itching. Eyes: Double vision, pain. ENT/Mouth: Nose bleeding, neck stiffness, pain, tenderness. Cardiovascular: Palpitations, dyspnea on exertion, orthopnea. Respiratory: Shortness of breath, wheezing, cough, hemoptysis, fever or night sweats. Gastrointestinal: Poor appetite, abdominal pain, heartburn, nausea, vomiting, constipation, or diarr hea. Genitourinary: Urgency, frequency, dysuria, nocturia. Musculoskeletal: Pain, swelling. Neurologic/Psychiatric: Anxiety, depression. Allergy/Immunologic: Skin rash, bleeding tendency. Please see my HPI for pertinent positives and negatives. All other review of systems reviewed and ne gative except as mentioned in the HPI. FAMILY HISTORY: No strong family history of premature coronary artery disease, stroke or cancer. SOCIAL HISTORY: Patient is . She lives at home by herself. Her son helps her out. No histo ry of tobacco, alcohol or illicit drug abuse at this point. She is a former smoker and quit smoking several years ago. PHYSICAL EXAMINATION: VITAL SIGNS: On arrival, blood pressure 138/83, pulse 84, respiratory rate 16, temperature 99.0, sat uration 97% on room air, weight 47.6 kilograms. GENERAL: Patient is alert, awake, chronically ill, no obvious acute distress. HEAD: Normocephalic, atraumatic. EYES: Pupils round, reactive to light. Extraocular muscles intact. ENT: Oropharynx within normal limits. Dry appearing mucous membranes. No oral lesions. No pharyng eal erythema, no exudates. NECK: Supple, no JVD, no thyromegaly, no carotid bruit. LUNGS: Clear to auscultation without any rhonchi or rales. CARDIAC: S1, S2 regular without any murmur. ABDOMEN: Diffuse tenderness noted, predominantly suprapubic discomfort noted. No peritoneal sign, n o guarding, no rigidity. Patient's pain is more towards right lower quadrant. BACK: Examination is unremarkable, no CVA tenderness. EXTREMITIES: Upper extremity passive movements of all joints are normal. Lower extremities; right a brandt knee amputation. Left lower extremity has wound which is chronically there, getting wound care team Saturday, Saturday, and Saturday. NEUROLOGIC: Nonfocal examination. She is moving all 4 limbs. Speech normal. SKIN: Patient does have wound over left lower extremity. PSYCHIATRIC: Normal affect. IMAGING AND SIGNIFICANT LABORATORY DATA: 1. CT of the abdomen and pelvis done today in the emergency room showing abdominal aortic aneurysm, cystitis and thickening of the cecum. 2. Urinalysis suggestive of UTI. 3. CBC: WBC 17.0, hemoglobin 10.6, platelet 277 with bandemia. 4. BMP: Sodium 141, potassium 2.2, chloride 111, carbon dioxide 16, anion gap 16, BUN 10, creatinin e 0.82, glucose 104, calcium 8.0, lactic acid 1.7. 5. LFT: AST 15, ALT 7, alkaline phosphatase 103, albumin 3.0, lipase 14. ASSESSMENT AND PLAN/IMPRESSION: 1. Sepsis due to urinary tract infection. 2. Urinary tract infection, likely related with recent urinary catheterization. 3. Hypokalemia, likely due to diarrhea and poor p.o. intake. 4. Hyperchloremic metabolic acidosis likely due to diarrhea. 5. Uncontrolled diarrhea due to inflammatory bowel disease. 6. Crohn's disease exacerbation. 7. Anemia of chronic disease with microcytosis. 8. Peripheral vascular disease with history of right above-knee amputation. 9. History of hypertension, but currently low blood pressure. 10. Failure to thrive with moderate to severe protein calorie malnutrition. 11. Anxiety and depression. 12. Peripheral neuropathy. 13. Dyslipidemia. 14. Coronary artery disease. 15. Physical deconditioning. PLAN: 1. Full admission to medical floor. We will start Rocephin, Levaquin, and Flagyl. We will replace potassium with IV fluid. We will check magnesium and phosphorus level tomorrow. We will provide pro biotics along with IV antibiotic therapy. The patient will need hydration with IV fluid with dextros e NS with KCl at 100 mL per hour. We will hold on antihypertensive medication until blood pressure s tabilized. We will start Solu-Medrol 40 mg IV q.6 hourly. We will consult metal caster for co ntrolling her inflammatory bowel disease. She may need Remicade therapy. We will send QuantiFERON T B gold test tomorrow. In case if this patient needs any stronger anti-inflammatory medication to con trol her Crohn's disease, we will start selected home medication. If this patient's oral intake is p oor, then she may need parenteral nutrition. 2. DVT prophylaxis, Lovenox 30 mg subcutaneously daily. 3. Gastrointestinal prophylaxis, Pepcid 20 mg IV b.i.d. 4. Code status: The patient is FULL CODE. Patient's son is surrogate decision maker. Disposition plan based on clinical course. We are expecting patient's stay in hospital more than 2 m idnights. Plan of care discussed with the patient and son at bedside in the emergency room.
[2017-02-04] MEDS ORDERED: Ondansetron HCl/PF 4 MG/2 ML Vial IVP PRN (17:13)
[2017-02-04] MEDS ORDERED: Ondansetron ODT 4 MG TAB SL PRN (17:13)
[2017-02-04] MEDS ORDERED: Artificial Tear Sol 15 ML BOT EA EYE PRN (17:18)
[2017-02-04] MEDS ORDERED: Acetaminophen 325 MG TAB PO PRN (17:18)
[2017-02-04] MEDS ORDERED: Nitroglycerin 0.4 MG TAB (25 Tab Bottle) SL PRN (17:18)
[2017-02-04] MEDS ORDERED: cefTRIAXone\\ROCEPHIN 1 GM in Sodium Chloride 0.9% 100 ML IVPB SCH (17:18)
[2017-02-04] MEDS ORDERED: hydrALAZINE 20 MG/ML VIAL SLOW IVP PRN (17:18)
[2017-02-04] MEDS ORDERED: Sodium Chloride 0.65% Nasal 44 ML BOT EA NARE PRN (17:18)
[2017-02-04] MEDS ORDERED: Loratadine 10 MG TAB PO PRN (17:18)
[2017-02-04] MEDS ORDERED: Zolpidem Tartrate 5 MG TAB PO PRN (17:18)
[2017-02-04] MEDS ORDERED: Eucerin (Mineral Oil/Petrolatum,White) 30 gm Jar TOP PRN (17:18)
[2017-02-04] MEDS ORDERED: Diabetic Tussin 200 MG/10 ML UDCUP PO PRN (17:18)
[2017-02-04] MEDS ORDERED: Ondansetron ODT 4 MG TAB PO PRN (17:18)
[2017-02-04] MEDS ORDERED: Mag-Al 1200 mg/1200 mg/30 ML UDCUP PO PRN (17:18)
[2017-02-04] MEDS ORDERED: Chloraseptic Spray 180 ml Bottle PO PRN (17:18)
[2017-02-04] MEDS ORDERED: ISOVUE-370 76%-LOCM 1 ML ONE (17:19)
[2017-02-04] MEDS ORDERED: Iopamidol 370 76% 50 ML VIAL FS ONE (17:19)
[2017-02-04] MEDS ORDERED: FLU VACC TS2017-18 (>65YR) 0.5 ML SYRINGE IM ONE (18:15)
[2017-02-04] MEDS: metroNIDAZOLE 500 MG in Premix Bag 1 BAG IVPB SCH (21:51)
[2017-02-04] MEDS: D5 1/2 NS w/20 mEq KCL 1,000 ML IV SCH (21:52)
[2017-02-04] MEDS: Gabapentin 300 MG CAP PO SCH (21:53)
[2017-02-04] MEDS: Famotidine/PF 20 mg/2ml Vial SLOW IVP SCH (21:53)
[2017-02-04] MEDS: Mirtazapine 15 MG TAB PO SCH (21:54)
[2017-02-04] MEDS: Mesalamine DR 400 mg Capsule PO SCH (21:56)
[2017-02-05 05:36] LABS: #Basophils 0.1 thou/uL (0.0-0.2); #Lymphocytes 0.5 thou/uL (1.20-3.40); #Monocytes 0.2 thou/uL (0.11-0.59); #Neutrophils 12.8 thou/uL (1.40-6.50); %Basophils 0.5 % (0.0-1.0); %Eosinophils 0.1 % (0.0-10.0); %Lymphocytes 3.5 % (21.0-51.0); %Monocytes 1.2 % (0.0-10.0); Hematocrit 30.9 % (36.0-47.0); Mean Platelet Volume 9.4 fL (7.4-10.4); Red Blood Cell (RBC) Count 3.85 mill/uL (4.20-5.40); White Blood Cell (WBC) Count 13.5 thou/uL (4.8-10.8)
[2017-02-05 06:15] LABS: Anion Gap 16 mmol/L (10-20); BUN (Urea Nitrogen) 9 mg/dL (9.8-20.1); Calc. Creatinine Clearance 49 mL/min (70-130); Calcium 7.4 mg/dL (7.8-10.44); Carbon Dioxide 15 mmol/L (23-31); Chloride 111 mmol/L (98-107); Estimated GFR-MDRD 72
[2017-02-05] MEDS: metroNIDAZOLE 500 MG in Premix Bag 1 BAG IVPB SCH ×3 (06:44→18:57)
[2017-02-05] MEDS ORDERED: Potassium Chloride 20 MEQ TAB PO SCH (07:45)
[2017-02-05] MEDS: Saccharomyces boulardii 250 MG CAP PO SCH (10:21)
[2017-02-05] MEDS: Gabapentin 300 MG CAP PO SCH ×3 (10:21→21:57)
[2017-02-05] MEDS: Escitalopram Oxalate 10 mg Tablet PO SCH (10:21)
[2017-02-05] MEDS: Famotidine/PF 20 mg/2ml Vial SLOW IVP SCH ×2 (10:21→20:05)
[2017-02-05] MEDS: Mesalamine DR 400 mg Capsule PO SCH ×3 (10:22→20:58)
[2017-02-05] MEDS: Cilostazol 100 MG TAB PO SCH (10:22)
[2017-02-05] MEDS: D5 1/2 NS w/20 mEq KCL 1,000 ML IV SCH ×3 (10:23→18:17)
[2017-02-05] MEDS: Enoxaparin Sodium 30 MG/0.3 ML SYRINGE SC SCH (10:23)
[2017-02-05 10:48] LABS: Magnesium 1.1 mg/dL (1.6-2.6)
[2017-02-05 10:54] LABS: Phosphorus 1.3 mg/dL (2.3-4.7)
--- NOTE | 2017-02-05 10:56 | PDOC.PN ---
- Subjective Encounter Start Date: 02/05/17 Encounter Start Time: 09:00 -: old records requested/rev pt still has diarrhoea, very poor po intake, not feeling well yet Patient seen and examined. No new complaints. No overnight events - Objective Resuscitation Status: Resuscitation Status FULL:Full Resuscitation MAR Reviewed: Yes Vital Signs & Weight: Vital Signs (12 hours) Temp Pulse Resp BP Pulse Ox 02/05/17 08:10 97.8 F 75 16 108/65 92 L 02/05/17 05:00 97.6 F 74 18 112/72 99 02/05/17 00:00 98.0 F 84 18 125/67 93 L Weight Weight 114 lb Result Diagrams: 02/05/17 04:31 02/05/17 04:31 Phys Exam - Physical Examination Constitutional: NAD HEENT: PERRLA, moist MMs, sclera anicteric Neck: no JVD, supple Respiratory: no wheezing, no rales, no rhonchi Cardiovascular: RRR, no significant murmur, no rub Gastrointestinal: soft, non-tender, no distention, positive bowel sounds right AKA Neurological: non-focal, normal sensation, moves all 4 limbs Psychiatric: normal affect, A&O x 3 Skin: no rash, normal turgor Dx/Plan (1) Hypophosphatemia Code(s): E83.39 - OTHER DISORDERS OF PHOSPHORUS METABOLISM Status: Acute (2) Hypomagnesemia Code(s): E83.42 - HYPOMAGNESEMIA Status: Acute (3) Acidosis, hyperchloremic Code(s): E87.2 - ACIDOSIS Status: Acute Comment: due to diarrhoea (4) Exacerbation of Crohn's disease Code(s): K50.90 - CROHN'S DISEASE, UNSPECIFIED, WITHOUT COMPLICATIONS Status: Acute (5) Hypokalemia Code(s): E87.6 - HYPOKALEMIA Status: Acute (6) UTI (urinary tract infection) Status: Acute (7) Anemia of chronic disease Code(s): D63.8 - ANEMIA IN OTHER CHRONIC DISEASES CLASSIFIED ELSEWHERE Status : Chronic (8) Anxiety and depression Code(s): F41.8 - OTHER SPECIFIED ANXIETY DISORDERS Status: Chronic (9) CREST syndrome Code(s): M34.1 - CR(E)ST SYNDROME Status: Chronic (10) Chronic obstructive pulmonary disease Status: Chronic (11) Dyslipidemia Code(s): E78.5 - HYPERLIPIDEMIA, UNSPECIFIED Status: Chronic (12) H/O above knee amputation Code(s): Z89.619 - ACQUIRED ABSENCE OF UNSPECIFIED LEG ABOVE KNEE Status: Chronic (13) Peripheral vascular disease Code(s): I73.9 - PERIPHERAL VASCULAR DISEASE, UNSPECIFIED Status: Chronic (14) Protein-calorie malnutrition, moderate Code(s): E44.0 - MODERATE PROTEIN-CALORIE MALNUTRITION Status: Chronic (15) Stasis ulcer of left lower extremity Code(s): I83.029 - VARICOSE VEINS OF LEFT LOWER EXTREMITY W ULCER OF UNSP SITE Status: Chronic Comment: ? Pyoderma gangrenosum (16) Vitamin D deficiency Code(s): E55.9 - VITAMIN D DEFICIENCY, UNSPECIFIED Status: Chronic - Plan cont current plan of care, continue antibiotics * replace potassium phosphate * replace magnesium sulfate * replace potassium with IVF * continue rocephin, levaquin and flagyl * continue iv solumderol * repeat labs tomorrow * medication reviewed as below * symptomatic treatment * GI consulted * stool negative for infection. Review of Systems - Review of Systems ENT: negative: Ear Pain, Ear Discharge, Nose Pain, Nose Discharge, Nose Congestion, Mouth Pain, Mouth Swelling, Throat Pain, Throat Swelling, Other Respiratory: negative: Cough, Dry, Shortness of Breath, Hemoptysis, SOB with Excertion, Pleuritic Pain, Sputum, Wheezing Cardiovascular: negative: Chest Pain, Palpitations, Orthopnea, Paroxysmal Noc. Dyspnea, Edema, Light Headedness, Other Gastrointestinal: Diarrhea. negative: Nausea, Vomiting, Abdominal Pain, Constipation, Melena, Hematochezia, Other Genitourinary: negative: Dysuria, Frequency, Incontinence, Hematuria, Retention , Other Musculoskeletal: negative: Neck Pain, Shoulder Pain, Arm Pain, Back Pain, Hand Pain, Leg Pain, Foot Pain, Other Skin: negative: Rash, Lesions, Neto, Bruising, Other - Medications/Allergies Allergies/Adverse Reactions: Allergies Allergy/AdvReac Type Severity Reaction Status Date / Time No Known Drug Allergies Allergy Verified 01/18/17 16:32 Medications: Current Medications Acetaminophen (Tylenol) 650 mg PO Q4H PRN PRN Reason: Headache/Fever or Pain Hydrocodone Bitart/Acetaminophen ([place] 5/325) 1 tab PO Q4H PRN PRN Reason: Moderate Pain (4-6) Al Hydroxide/Mg Hydroxide (Maalox) 30 ml PO Q6H PRN PRN Reason: Heartburn or Indigestion Artificial Tears (Tears Renewed 15ml Bottle) 0 drop EA EYE PRN PRN PRN Reason: Dry Eyes Aspirin (Aspirin Chewable) 81 mg PO DAILY [facility] Last Admin: 02/05/17 10:22 Dose: 81 mg Cilostazol (Pletal) 50 mg PO DAILY [facility] Last Admin: 02/05/17 10:22 Dose: 50 mg Enoxaparin Sodium (Lovenox) 30 mg SC 0900 [facility] Last Admin: 02/05/17 10:23 Dose: 30 mg Escitalopram Oxalate (Lexapro) 10 mg PO DAILY [facility] Last Admin: 02/05/17 10:21 Dose: 10 mg Famotidine (Pepcid) 20 mg SLOW IVP Q12HR [facility] Last Admin: 02/05/17 10:21 Dose: 20 mg Gabapentin (Neurontin) 300 mg PO TID [facility] Last Admin: 02/05/17 10:21 Dose: 300 mg Guaifenesin (Robitussin Sf) 200 mg PO Q4H PRN PRN Reason: Cough Hydralazine HCl (Apresoline) 10 mg SLOW IVP Q4H PRN PRN Reason: Systolic BP > 180 Potassium Chloride/Dextrose/Sod Cl (D5 1/2 Ns W/20 Meq Kcl) 1,000 mls @ 125 mls /hr IV .Q8H [facility] Last Admin: 02/05/17 10:37 Dose: 1,000 mls Levofloxacin 500 mg/ Device 100 mls @ 100 mls/hr IVPB Q24HR@1600 [facility] Metronidazole 500 mg/ Device 100 mls @ 100 mls/hr IVPB 0200,1000,1800 [facility] Last Admin: 02/05/17 06:44 Dose: 100 mls Ceftriaxone Sodium 1 gm/ (Syringe 0.4 ml/ Sterile Water) 10 mls @ 120 mls/hr SLOW IVP 1200 [facility] Loperamide HCl (Imodium) 2 mg PO PRN PRN PRN Reason: Diarrhea/Loose Stools Loratadine (Claritin) 10 mg PO DAILYPRN PRN PRN Reason: Sinus Symptoms Mesalamine (Delzicol Dr) 800 mg PO TID [facility] Last Admin: 02/05/17 10:22 Dose: 800 mg Methylprednisolone Sodium Succinate (Solu-Medrol) 40 mg IVP Q6HR [facility] Last Admin: 02/05/17 06:47 Dose: 40 mg Mineral Oil/White Petrolatum (Eucerin Cream) 0 gm TOP BIDPRN PRN PRN Reason: Dry Skin Mirtazapine (Remeron) 15 mg PO HS [facility] Last Admin: 02/04/17 21:54 Dose: 15 mg Nitroglycerin (Nitrostat) 0.4 mg SL Q5MIN PRN PRN Reason: Chest Pain Ondansetron HCl (Zofran Odt) 4 mg PO Q6H PRN PRN Reason: Nausea/Vomiting Ondansetron HCl (Zofran) 4 mg IVP Q6H PRN PRN Reason: Nausea/Vomiting Pentoxifylline (Trental) 400 mg PO BID [facility] Last Admin: 02/05/17 10:22 Dose: 400 mg Phenol (Chloraseptic [place] 180 Ml Bot) 0 ml PO PRN PRN PRN Reason: Sore Throat Rosuvastatin Calcium (Crestor) 5 mg PO [facility] Last Admin: 02/04/17 21:57 Dose: 5 mg Saccharomyces Boulardii (Florastor) 250 mg PO DAILY [facility] Last Admin: 02/05/17 10:21 Dose: 250 mg Sodium Chloride ([place] Nasal [place] 0.65%) 0 ml EA NARE QIDPRN PRN PRN Reason: Nasal Congestion Sodium Chloride (Flush - Normal Saline) 10 ml IVF Q12HR [facility] Last Admin: 02/05/17 10:25 Dose: Not Given Sodium Chloride (Flush - Normal Saline) 10 ml IVF PRN PRN PRN Reason: Saline Flush Zolpidem Tartrate (Ambien) 5 mg PO HSPRN PRN PRN Reason: Insomnia
[2017-02-05] MEDS ORDERED: Potassium Phosphate 30 MMOL in Sodium Chloride 0.9% 500 ML IVPB SCH (11:00)
[2017-02-05] MEDS ORDERED: Magnesium Sulfate 4 GM in Sodium Chloride 0.9% 250 ML 250 ML IVPB SCH (11:00)
[2017-02-05] MEDS ORDERED: cefTRIAXone\\ROCEPHIN 1 GM, Syringe 0.4 ML in Sterile Water 9.6 ML SLOW IVP SCH (12:00)
[2017-02-05] MEDS: HYDROcodone/Acetaminophen 5/325 mg Tablet PO PRN (20:58)
[2017-02-05] MEDS: Mirtazapine 15 MG TAB PO SCH (21:57)
[2017-02-06] MEDS: D5 1/2 NS w/20 mEq KCL 1,000 ML IV SCH ×3 (01:32→21:55)
[2017-02-06] MEDS: metroNIDAZOLE 500 MG in Premix Bag 1 BAG IVPB SCH ×3 (01:51→17:30)
[2017-02-06 04:32] LABS: #Lymphocytes 0.7 thou/uL (1.20-3.40); #Monocytes 0.3 thou/uL (0.11-0.59); #Neutrophils 12.8 thou/uL (1.40-6.50); %Basophils 0.1 % (0.0-1.0); %Eosinophils 0.1 % (0.0-10.0); %Lymphocytes 5.1 % (21.0-51.0); %Monocytes 2.5 % (0.0-10.0); Hematocrit 28.3 % (36.0-47.0); Red Blood Cell (RBC) Count 3.56 mill/uL (4.20-5.40); White Blood Cell (WBC) Count 13.8 thou/uL (4.8-10.8)
[2017-02-06 05:28] LABS: ALT (SGPT) Less than 7 U/L (8-55); AST (SGOT) 8 U/L (5-34); Alkaline Phosphatase 91 U/L (40-150); Anion Gap 11 mmol/L (10-20); BUN (Urea Nitrogen) 9 mg/dL (9.8-20.1); Bilirubin, Total 0.2 mg/dL (0.2-1.2); Calc. Creatinine Clearance 49 mL/min (70-130); Calcium 6.8 mg/dL (7.8-10.44); Carbon Dioxide 17 mmol/L (23-31); Chloride 114 mmol/L (98-107); Estimated GFR-MDRD 71; Globulin 2.3 g/dL (2.4-3.5); Magnesium 2.5 mg/dL (1.6-2.6); Phosphorus 2.6 mg/dL (2.3-4.7); Protein, Total 4.7 g/dL (6.0-8.3)
[2017-02-06] MEDS ORDERED: Potassium Chloride 20 MEQ TAB PO SCH (08:15)
[2017-02-06] MEDS: Famotidine/PF 20 mg/2ml Vial SLOW IVP SCH ×2 (08:42→20:27)
[2017-02-06] MEDS: Gabapentin 300 MG CAP PO SCH ×3 (08:43→21:48)
[2017-02-06] MEDS: Cilostazol 100 MG TAB PO SCH (08:43)
[2017-02-06] MEDS: Escitalopram Oxalate 10 mg Tablet PO SCH (08:43)
[2017-02-06] MEDS: Saccharomyces boulardii 250 MG CAP PO SCH (08:43)
[2017-02-06] MEDS: Enoxaparin Sodium 30 MG/0.3 ML SYRINGE SC SCH (08:45)
[2017-02-06] MEDS: Mesalamine DR 400 mg Capsule PO SCH ×3 (08:45→20:26)
--- NOTE | 2017-02-06 12:54 | PDOC.PN ---
- Subjective Encounter Start Date: 02/06/17 Encounter Start Time: 08:45 Patient seen and examined. No new complaints. No overnight events, she is feeling better, less diarrhoea - Objective Resuscitation Status: Resuscitation Status FULL:Full Resuscitation MAR Reviewed: Yes Vital Signs & Weight: Vital Signs (12 hours) Temp Pulse Resp BP BP Pulse Ox 02/06/17 11:41 97.5 F L 74 18 131/74 100 02/06/17 08:00 97.4 F L 71 17 100 02/06/17 07:58 97.4 F L 71 17 102/66 02/06/17 04:40 98.2 F 60 18 94/57 L 92 L Weight Admit Weight 114 lb Weight 141 lb 1.6 oz I&O: 02/05/17 02/06/17 02/07/17 06:59 06:59 06:59 Intake Total 2200 Balance 2200 Result Diagrams: 02/06/17 03:19 02/06/17 03:19 Phys Exam - Physical Examination Constitutional: NAD HEENT: PERRLA, moist MMs, sclera anicteric Neck: no JVD, supple Respiratory: no wheezing, no rales, no rhonchi Cardiovascular: RRR, no significant murmur, no rub Gastrointestinal: soft, non-tender, no distention, positive bowel sounds Musculoskeletal: no edema, pulses present right AKA Neurological: non-focal Psychiatric: normal affect, A&O x 3 Skin: no rash, normal turgor Dx/Plan (1) Hypophosphatemia Code(s): E83.39 - OTHER DISORDERS OF PHOSPHORUS METABOLISM Status: Acute (2) Hypomagnesemia Code(s): E83.42 - HYPOMAGNESEMIA Status: Acute (3) Acidosis, hyperchloremic Code(s): E87.2 - ACIDOSIS Status: Acute Comment: due to diarrhoea (4) Exacerbation of Crohn's disease Code(s): K50.90 - CROHN'S DISEASE, UNSPECIFIED, WITHOUT COMPLICATIONS Status: Acute (5) Hypokalemia Code(s): E87.6 - HYPOKALEMIA Status: Acute (6) UTI (urinary tract infection) Status: Acute (7) Anemia of chronic disease Code(s): D63.8 - ANEMIA IN OTHER CHRONIC DISEASES CLASSIFIED ELSEWHERE Status : Chronic (8) Anxiety and depression Code(s): F41.8 - OTHER SPECIFIED ANXIETY DISORDERS Status: Chronic (9) CREST syndrome Code(s): M34.1 - CR(E)ST SYNDROME Status: Chronic (10) Chronic obstructive pulmonary disease Status: Chronic (11) Dyslipidemia Code(s): E78.5 - HYPERLIPIDEMIA, UNSPECIFIED Status: Chronic (12) H/O above knee amputation Code(s): Z89.619 - ACQUIRED ABSENCE OF UNSPECIFIED LEG ABOVE KNEE Status: Chronic (13) Peripheral vascular disease Code(s): I73.9 - PERIPHERAL VASCULAR DISEASE, UNSPECIFIED Status: Chronic (14) Protein-calorie malnutrition, moderate Code(s): E44.0 - MODERATE PROTEIN-CALORIE MALNUTRITION Status: Chronic (15) Stasis ulcer of left lower extremity Code(s): I83.029 - VARICOSE VEINS OF LEFT LOWER EXTREMITY W ULCER OF UNSP SITE Status: Chronic Comment: ? Pyoderma gangrenosum (16) Vitamin D deficiency Code(s): E55.9 - VITAMIN D DEFICIENCY, UNSPECIFIED Status: Chronic - Plan cont current plan of care, continue antibiotics * GI has not seen yet * electrolytes are corrected * DC rocephin * continue levaquin and flagyl * continue IV solumedrol * medication reviewed as below * symptomatic treatment * will repeat labs tomorrow * pt is improving. Review of Systems - Review of Systems Constitutional: negative: Fever, Chills, Sweats, Weakness, Malaise, Other ENT: negative: Ear Pain, Ear Discharge, Nose Pain, Nose Discharge, Nose Congestion, Mouth Pain, Mouth Swelling, Throat Pain, Throat Swelling, Other Respiratory: negative: Cough, Dry, Shortness of Breath, Hemoptysis, SOB with Excertion, Pleuritic Pain, Sputum, Wheezing Cardiovascular: negative: Chest Pain, Palpitations, Orthopnea, Paroxysmal Noc. Dyspnea, Edema, Light Headedness, Other Gastrointestinal: Diarrhea. negative: Nausea, Vomiting, Abdominal Pain, Constipation, Melena, Hematochezia, Other Genitourinary: negative: Dysuria, Frequency, Incontinence, Hematuria, Retention , Other Musculoskeletal: negative: Neck Pain, Shoulder Pain, Arm Pain, Back Pain, Hand Pain, Leg Pain, Foot Pain, Other Skin: negative: Rash, Lesions, Neto, Bruising, Other - Medications/Allergies Allergies/Adverse Reactions: Allergies Allergy/AdvReac Type Severity Reaction Status Date / Time No Known Drug Allergies Allergy Verified 01/18/17 16:32 Medications: Current Medications Acetaminophen (Tylenol) 650 mg PO Q4H PRN PRN Reason: Headache/Fever or Pain Hydrocodone Bitart/Acetaminophen ([place] 5/325) 1 tab PO Q4H PRN PRN Reason: Moderate Pain (4-6) Last Admin: 02/05/17 20:58 Dose: 1 tab Al Hydroxide/Mg Hydroxide (Maalox) 30 ml PO Q6H PRN PRN Reason: Heartburn or Indigestion Last Admin: 02/05/17 14:22 Dose: 30 ml Artificial Tears (Tears Renewed 15ml Bottle) 0 drop EA EYE PRN PRN PRN Reason: Dry Eyes Aspirin (Aspirin Chewable) 81 mg PO DAILY [facility] Last Admin: 02/06/17 08:43 Dose: 81 mg Cilostazol (Pletal) 50 mg PO DAILY [facility] Last Admin: 02/06/17 08:43 Dose: 50 mg Enoxaparin Sodium (Lovenox) 30 mg SC 0900 [facility] Last Admin: 02/06/17 08:45 Dose: 30 mg Escitalopram Oxalate (Lexapro) 10 mg PO DAILY [facility] Last Admin: 02/06/17 08:43 Dose: 10 mg Famotidine (Pepcid) 20 mg SLOW IVP Q12HR [facility] Last Admin: 02/06/17 08:42 Dose: 20 mg Gabapentin (Neurontin) 300 mg PO TID [facility] Last Admin: 02/06/17 08:43 Dose: 300 mg Guaifenesin (Robitussin Sf) 200 mg PO Q4H PRN PRN Reason: Cough Hydralazine HCl (Apresoline) 10 mg SLOW IVP Q4H PRN PRN Reason: Systolic BP > 180 Potassium Chloride/Dextrose/Sod Cl (D5 1/2 Ns W/20 Meq Kcl) 1,000 mls @ 125 mls /hr IV .Q8H [facility] Last Admin: 02/06/17 10:25 Dose: 1,000 mls Levofloxacin 500 mg/ Device 100 mls @ 100 mls/hr IVPB Q24HR@1600 [facility] Last Admin: 02/05/17 17:00 Dose: 100 mls Metronidazole 500 mg/ Device 100 mls @ 100 mls/hr IVPB 0200,1000,1800 [facility] Last Admin: 02/06/17 10:56 Dose: 100 mls Loperamide HCl (Imodium) 2 mg PO PRN PRN PRN Reason: Diarrhea/Loose Stools Loratadine (Claritin) 10 mg PO DAILYPRN PRN PRN Reason: Sinus Symptoms Mesalamine (Delzicol Dr) 800 mg PO TID [facility] Last Admin: 02/06/17 08:45 Dose: 800 mg Methylprednisolone Sodium Succinate (Solu-Medrol) 40 mg IVP Q6HR [facility] Last Admin: 02/06/17 12:48 Dose: 40 mg Mineral Oil/White Petrolatum (Eucerin Cream) 0 gm TOP BIDPRN PRN PRN Reason: Dry Skin Mirtazapine (Remeron) 15 mg PO HS [facility] Last Admin: 02/05/17 21:57 Dose: 15 mg Nitroglycerin (Nitrostat) 0.4 mg SL Q5MIN PRN PRN Reason: Chest Pain Ondansetron HCl (Zofran Odt) 4 mg PO Q6H PRN PRN Reason: Nausea/Vomiting Ondansetron HCl (Zofran) 4 mg IVP Q6H PRN PRN Reason: Nausea/Vomiting Pentoxifylline (Trental) 400 mg PO BID [facility] Last Admin: 02/06/17 08:45 Dose: 400 mg Phenol (Chloraseptic [place] 180 Ml Bot) 0 ml PO PRN PRN PRN Reason: Sore Throat Rosuvastatin Calcium (Crestor) 5 mg PO HS [facility] Last Admin: 02/05/17 21:58 Dose: 5 mg Saccharomyces Boulardii (Florastor) 250 mg PO DAILY [facility] Last Admin: 02/06/17 08:43 Dose: 250 mg Sodium Chloride ([place] Nasal [place] 0.65%) 0 ml EA NARE QIDPRN PRN PRN Reason: Nasal Congestion Sodium Chloride (Flush - Normal Saline) 10 ml IVF Q12HR [facility] Last Admin: 02/06/17 08:46 Dose: Not Given Sodium Chloride (Flush - Normal Saline) 10 ml IVF PRN PRN PRN Reason: Saline Flush Zolpidem Tartrate (Ambien) 5 mg PO HSPRN PRN PRN Reason: Insomnia
[2017-02-06] MEDS: Mirtazapine 15 MG TAB PO SCH (20:27)
[2017-02-06] MEDS: HYDROcodone/Acetaminophen 5/325 mg Tablet PO PRN (21:13)
[2017-02-07] MEDS: metroNIDAZOLE 500 MG in Premix Bag 1 BAG IVPB SCH ×2 (02:05→10:36)
[2017-02-07 05:37] LABS: #Lymphocytes 0.7 thou/uL (1.20-3.40); #Monocytes 0.3 thou/uL (0.11-0.59); #Neutrophils 14.5 thou/uL (1.40-6.50); %Basophils 0.2 % (0.0-1.0); %Lymphocytes 4.3 % (21.0-51.0); %Monocytes 1.6 % (0.0-10.0); Hematocrit 28.6 % (36.0-47.0); Red Blood Cell (RBC) Count 3.56 mill/uL (4.20-5.40); White Blood Cell (WBC) Count 15.5 thou/uL (4.8-10.8)
[2017-02-07 05:51] LABS: Anion Gap 11 mmol/L (10-20); BUN (Urea Nitrogen) 7 mg/dL (9.8-20.1); Calc. Creatinine Clearance 59 mL/min (70-130); Calcium 6.9 mg/dL (7.8-10.44); Carbon Dioxide 16 mmol/L (23-31); Chloride 118 mmol/L (98-107); Estimated GFR-MDRD 69
[2017-02-07] MEDS: Famotidine/PF 20 mg/2ml Vial SLOW IVP SCH ×2 (10:35→20:10)
[2017-02-07] MEDS: Gabapentin 300 MG CAP PO SCH ×3 (10:36→20:17)
[2017-02-07] MEDS: D5 1/2 NS w/20 mEq KCL 1,000 ML IV SCH ×4 (10:36→20:07)
--- NOTE | 2017-02-07 10:38 | PDOC.PN ---
- Subjective Encounter Start Date: 02/07/17 Encounter Start Time: 09:20 still has diarrhoea, has poor po intake, no fever, GI has not seen since admission - Objective Resuscitation Status: Resuscitation Status FULL:Full Resuscitation MAR Reviewed: Yes Vital Signs & Weight: Vital Signs (12 hours) Temp Pulse Resp BP Pulse Ox 02/07/17 07:47 97.7 F 91 18 97/63 02/07/17 04:00 97.4 F L 71 18 113/78 97 02/07/17 00:03 97.5 F L 66 16 122/77 94 L Weight Admit Weight 114 lb Weight 145 lb 9.6 oz I&O: 02/06/17 02/07/17 02/08/17 06:59 06:59 06:59 Intake Total 2199 1899 Balance 2199 1899 Result Diagrams: 02/07/17 05:10 02/07/17 05:10 Phys Exam - Physical Examination Constitutional: NAD HEENT: PERRLA, moist MMs, sclera anicteric Neck: no JVD, supple Respiratory: no wheezing, no rales, no rhonchi Cardiovascular: RRR, no significant murmur, no rub Gastrointestinal: soft, non-tender, no distention, positive bowel sounds right AKA, left leg wound with dressing Neurological: non-focal Lymphatic: no nodes Psychiatric: normal affect, A&O x 3 Skin: no rash, normal turgor Dx/Plan (1) Hypophosphatemia Code(s): E83.39 - OTHER DISORDERS OF PHOSPHORUS METABOLISM Status: Acute (2) Hypomagnesemia Code(s): E83.42 - HYPOMAGNESEMIA Status: Acute (3) Acidosis, hyperchloremic Code(s): E87.2 - ACIDOSIS Status: Acute Comment: due to diarrhoea (4) Exacerbation of Crohn's disease Code(s): K50.90 - CROHN'S DISEASE, UNSPECIFIED, WITHOUT COMPLICATIONS Status: Acute (5) Hypokalemia Code(s): E87.6 - HYPOKALEMIA Status: Acute (6) UTI (urinary tract infection) Status: Acute (7) Anemia of chronic disease Code(s): D63.8 - ANEMIA IN OTHER CHRONIC DISEASES CLASSIFIED ELSEWHERE Status : Chronic (8) Anxiety and depression Code(s): F41.8 - OTHER SPECIFIED ANXIETY DISORDERS Status: Chronic (9) CREST syndrome Code(s): M34.1 - CR(E)ST SYNDROME Status: Chronic (10) Chronic obstructive pulmonary disease Status: Chronic (11) Dyslipidemia Code(s): E78.5 - HYPERLIPIDEMIA, UNSPECIFIED Status: Chronic (12) H/O above knee amputation Code(s): Z89.619 - ACQUIRED ABSENCE OF UNSPECIFIED LEG ABOVE KNEE Status: Chronic (13) Peripheral vascular disease Code(s): I73.9 - PERIPHERAL VASCULAR DISEASE, UNSPECIFIED Status: Chronic (14) Protein-calorie malnutrition, moderate Code(s): E44.0 - MODERATE PROTEIN-CALORIE MALNUTRITION Status: Chronic (15) Stasis ulcer of left lower extremity Code(s): I83.029 - VARICOSE VEINS OF LEFT LOWER EXTREMITY W ULCER OF UNSP SITE Status: Chronic Comment: ? Pyoderma gangrenosum (16) Vitamin D deficiency Code(s): E55.9 - VITAMIN D DEFICIENCY, UNSPECIFIED Status: Chronic - Plan cont current plan of care, continue antibiotics * continue levaquin and flagyl * continue IV solumedrol * reduce IVF * medication reviewed as below * symptomatic treatment * GI to see today and give opinion. Review of Systems - Review of Systems Constitutional: negative: Fever, Chills, Sweats, Weakness, Malaise, Other Eyes: negative: Pain, Vision Change, Conjunctivae Inflammation, Eyelid Inflammation, Redness, Other ENT: negative: Ear Pain, Ear Discharge, Nose Pain, Nose Discharge, Nose Congestion, Mouth Pain, Mouth Swelling, Throat Pain, Throat Swelling, Other Respiratory: negative: Cough, Dry, Shortness of Breath, Hemoptysis, SOB with Excertion, Pleuritic Pain, Sputum, Wheezing Cardiovascular: negative: Chest Pain, Palpitations, Orthopnea, Paroxysmal Noc. Dyspnea, Edema, Light Headedness, Other Gastrointestinal: Diarrhea. negative: Nausea, Vomiting, Abdominal Pain, Constipation, Melena, Hematochezia, Other Genitourinary: negative: Dysuria, Frequency, Incontinence, Hematuria, Retention , Other Musculoskeletal: negative: Neck Pain, Shoulder Pain, Arm Pain, Back Pain, Hand Pain, Leg Pain, Foot Pain, Other - Medications/Allergies Allergies/Adverse Reactions: Allergies Allergy/AdvReac Type Severity Reaction Status Date / Time No Known Drug Allergies Allergy Verified 01/18/17 16:32 Medications: Current Medications Acetaminophen (Tylenol) 650 mg PO Q4H PRN PRN Reason: Headache/Fever or Pain Hydrocodone Bitart/Acetaminophen ([place] 5/325) 1 tab PO Q4H PRN PRN Reason: Moderate Pain (4-6) Last Admin: 02/06/17 21:13 Dose: 1 tab Al Hydroxide/Mg Hydroxide (Maalox) 30 ml PO Q6H PRN PRN Reason: Heartburn or Indigestion Last Admin: 02/05/17 14:22 Dose: 30 ml Artificial Tears (Tears Renewed 15ml Bottle) 0 drop EA EYE PRN PRN PRN Reason: Dry Eyes Aspirin (Aspirin Chewable) 81 mg PO DAILY [facility] Last Admin: 02/06/17 08:43 Dose: 81 mg Cilostazol (Pletal) 50 mg PO DAILY [facility] Last Admin: 02/06/17 08:43 Dose: 50 mg Enoxaparin Sodium (Lovenox) 30 mg SC 0900 [facility] Last Admin: 02/06/17 08:45 Dose: 30 mg Escitalopram Oxalate (Lexapro) 10 mg PO DAILY [facility] Last Admin: 02/06/17 08:43 Dose: 10 mg Famotidine (Pepcid) 20 mg SLOW IVP Q12HR [facility] Last Admin: 02/06/17 20:27 Dose: 20 mg Gabapentin (Neurontin) 300 mg PO TID [facility] Last Admin: 02/06/17 21:48 Dose: 300 mg Guaifenesin (Robitussin Sf) 200 mg PO Q4H PRN PRN Reason: Cough Hydralazine HCl (Apresoline) 10 mg SLOW IVP Q4H PRN PRN Reason: Systolic BP > 180 Potassium Chloride/Dextrose/Sod Cl (D5 1/2 Ns W/20 Meq Kcl) 1,000 mls @ 125 mls /hr IV .Q8H [facility] Last Admin: 02/06/17 21:55 Dose: 1,000 mls Levofloxacin 500 mg/ Device 100 mls @ 100 mls/hr IVPB Q24HR@1600 [facility] Last Admin: 02/06/17 16:03 Dose: 100 mls Metronidazole 500 mg/ Device 100 mls @ 100 mls/hr IVPB 0200,1000,1800 [facility] Last Admin: 02/07/17 02:05 Dose: 100 mls Loperamide HCl (Imodium) 2 mg PO PRN PRN PRN Reason: Diarrhea/Loose Stools Loratadine (Claritin) 10 mg PO DAILYPRN PRN PRN Reason: Sinus Symptoms Mesalamine (Delzicol Dr) 800 mg PO TID [facility] Last Admin: 02/06/17 20:26 Dose: 800 mg Methylprednisolone Sodium Succinate (Solu-Medrol) 40 mg IVP Q6HR [facility] Last Admin: 02/07/17 05:50 Dose: 40 mg Mineral Oil/White Petrolatum (Eucerin Cream) 0 gm TOP BIDPRN PRN PRN Reason: Dry Skin Mirtazapine (Remeron) 15 mg PO HS [facility] Last Admin: 02/06/17 20:27 Dose: 15 mg Nitroglycerin (Nitrostat) 0.4 mg SL Q5MIN PRN PRN Reason: Chest Pain Ondansetron HCl (Zofran Odt) 4 mg PO Q6H PRN PRN Reason: Nausea/Vomiting Ondansetron HCl (Zofran) 4 mg IVP Q6H PRN PRN Reason: Nausea/Vomiting Pentoxifylline (Trental) 400 mg PO BID [facility] Last Admin: 02/06/17 21:49 Dose: 400 mg Phenol (Chloraseptic [place] 180 Ml Bot) 0 ml PO PRN PRN PRN Reason: Sore Throat Rosuvastatin Calcium (Crestor) 5 mg PO [facility] Last Admin: 02/06/17 21:49 Dose: 5 mg Saccharomyces Boulardii (Florastor) 250 mg PO DAILY [facility] Last Admin: 02/06/17 08:43 Dose: 250 mg Sodium Chloride ([place] Nasal [place] 0.65%) 0 ml EA NARE QIDPRN PRN PRN Reason: Nasal Congestion Sodium Chloride (Flush - Normal Saline) 10 ml IVF Q12HR [facility] Last Admin: 02/06/17 20:28 Dose: 10 ml Sodium Chloride (Flush - Normal Saline) 10 ml IVF PRN PRN PRN Reason: Saline Flush Zolpidem Tartrate (Ambien) 5 mg PO HSPRN PRN PRN Reason: Insomnia
[2017-02-07] MEDS: HYDROcodone/Acetaminophen 5/325 mg Tablet PO PRN ×2 (10:44→18:02)
[2017-02-07] MEDS: Enoxaparin Sodium 30 MG/0.3 ML SYRINGE SC SCH (10:46)
[2017-02-07] MEDS: Escitalopram Oxalate 10 mg Tablet PO SCH ×2 (11:20→13:59)
[2017-02-07] MEDS: Saccharomyces boulardii 250 MG CAP PO SCH (11:20)
[2017-02-07] MEDS: Mesalamine DR 400 mg Capsule PO SCH ×3 (11:20→20:08)
[2017-02-07] MEDS: Cilostazol 100 MG TAB PO SCH ×2 (11:20→13:59)
[2017-02-07] MEDS: Mirtazapine 15 MG TAB PO SCH (20:09)
--- NOTE | 2017-02-07 21:16 | CON ---
DATE OF CONSULTATION: 02/07/2017 REASON FOR CONSULTATION: Nausea, vomiting, diarrhea, and history of Crohn's. HISTORY OF PRESENT ILLNESS: Ms. Robert was admitted to the hospital on 02/04/2017 with a UTI and chayo rrhea. She had recently been in the hospital in end of August 2016, had a CAT scan that showed ileal t hickening with a chronic history of diarrhea. She underwent a colonoscopy and ileoscopy on 7, this study showed severe ileitis at terminal ileum at 15 cm, multiple erosions and a few deep ulce rs. There was ulcerative colitis in the cecum with multiple shallow ulcers that were biopsied. The remaining examination was normal. Endoscopic appearance of Crohn's. She was ultimately discharged h ome on Lialda and prednisone taper. On that admission, stool tests were negative for blood. C. diff , Campylobacter, lactoferrin was positive. She was followup in our office, but did not returned. Mitch johnson ultimately came back to the hospital on 02/04/2017 for diarrhea and continued abdominal discomfort and inability p.o. intake. She was not able to tolerate food and therefore was not taking medicine e ither. In any event, she was readmitted to the hospital. She states she was having diarrhea from 1 to 7 times per day. She was feeling more and more weak and was having left lower quadrant pain and f elt she was having more urinary in this frequency, urgency. She came in and was diagnosed with urina ry tract infection. She underwent repeat CAT scan which showed wall thickening in the cecum and ileu m consistent with inflammatory bowel disease. She was readmitted and started on levofloxacin, Solu-M edrol, and Flagyl. Apparently, there was a GI consult placed Saturday evening; however, that was called the answering serv ice and it was never conveyed to the doctor on-call. The engine inspector in the hospital said that they we re going to call the consult in the morning. I counseled apparently was never called until today our office was contacted about the need for consultation. I talked with the patient. She is eating rosio y little. The nurses confirmed this. She continues with IV fluids and antibiotics. PAST MEDICAL HISTORY: Crest syndrome, hypertension, peripheral vascular disease, previous right BKA, COPD, chronic kidney disease, coronary artery disease with previous bypass grafting, history of Clos tridium difficile colitis and apparently diagnosis of Crohn's disease, anxiety and depression. PAST SURGICAL HISTORY: Carotid stenting in the right side, CABG, stenting in both legs, lumpectomy, and tonsillectomy. ALLERGIES: None known. CURRENT MEDICATIONS: Pentoxifylline, [place], gabapentin, prednisone 5 mg daily, Remeron, Crestor, Ple dianne, Lexapro, Plavix, aspirin, lisinopril. REVIEW OF SYSTEMS: Negative for fever or chills. Negative for vomiting. Positive for anorexia. SOCIAL HISTORY: The patient is , lives at home by herself. She does not smoke, drink or use drugs. She notes that she has had diarrhea problems for a couple of years now. PRESENT MEDICATIONS: Tylenol p.r.n., Maalox p.r.n., aspirin 81 mg daily, Pletal 50 mg daily, D5 half normal 125 an hour, Lovenox, Pepcid 20 mg IV daily, gabapentin 300 mg t.i.d., hydrocodone 1 tablet q .4 h. p.r.n., levofloxacin 500 mg daily, loperamide p.r.n., loratadine 10 mg p.r.n., mesalamine 800 m g t.i.d., methylprednisolone 40 mg IV q.6 h., Flagyl 500 mg IV q.8 h., mirtazapine and Pentoxin 400 m g p.o. b.i.d., rosuvastatin 5 mg daily, Saccharomyces boulardii. PHYSICAL EXAMINATION: GENERAL: The patient is resting comfortably in bed. VITAL SIGNS: Temperature 97.6, pulse 71, blood pressure is 155/79. LABORATORY AND X-RAY FINDINGS: White count 15.5, was 17 on admission. Hemoglobin 8.8, MCV 88, plate let count 288. Chemistries: Sodium 141, potassium 4, chloride 118, bicarbonate 16, BUN and creatini ne are 7 and 0.8. Comprehensive metabolic profile on the was normal. Albumin was low at 3.4. Urine showed greater than 50 white blood cells in this admission. Microbiology rapid parasite screen negative. Campylobacter negative. Stool culture negative. Clostridium difficile negative. Leg wo und grew out Enterococcus faecalis, unsure where that wound was. Blood cultures negative. Urine cul ture showed Klebsiella. CT scan this admission showed air in the urinary bladder, felt to be from in strumentation possibly, wall thickening in the cecum. ASSESSMENT: 1. Inflammatory bowel disease, most likely Crohn's based on biopsies. The patient went home with st eroids and both oral 5-ASA with not really any improvement. It is unclear if she took the medication s. Now, she has returned with similar symptoms and urinary tract infection. She has been on steroid s for several days. She is not eating much. She is on Flagyl. She is on Levaquin. She has got a v karel benign abdomen and the CAT scan that showed some cecal inflammation, but no overt evidence of obs truction. 2. At this time, I see no real good reason why she cannot eat, at least in terms of inflammatory bow el disease. I would stop the Flagyl, this may be hurting her stomach and causing her not to have muc h appetite and causing nausea. I will put on some oral supplements and felt like she is doing in the meantime. We will get serology for hepatitis B and TB screening. If she does not improve, we can c onsider Remicade. If she does not improve next day or 2, CT urography will be the next step. As vijaya n as she does not need the Flagyl and Levaquin for UTI that needed to be stop.
[2017-02-08 05:29] LABS: Anion Gap 12 mmol/L (10-20); BUN (Urea Nitrogen) 8 mg/dL (9.8-20.1); Calc. Creatinine Clearance 56 mL/min (70-130); Calcium 7.1 mg/dL (7.8-10.44); Carbon Dioxide 16 mmol/L (23-31); Chloride 119 mmol/L (98-107); Estimated GFR-MDRD 63
[2017-02-08 05:31] LABS: #Lymphocytes 0.8 thou/uL (1.20-3.40); #Monocytes 0.2 thou/uL (0.11-0.59); #Neutrophils 9.6 thou/uL (1.40-6.50); %Basophils 0.1 % (0.0-1.0); %Eosinophils 0.1 % (0.0-10.0); %Lymphocytes 7.1 % (21.0-51.0); %Monocytes 2.2 % (0.0-10.0); Hematocrit 28.8 % (36.0-47.0); Mean Platelet Volume 9.3 fL (7.4-10.4); Red Blood Cell (RBC) Count 3.57 mill/uL (4.20-5.40); White Blood Cell (WBC) Count 10.6 thou/uL (4.8-10.8)
[2017-02-08] MEDS: D5 1/2 NS w/20 mEq KCL 1,000 ML IV SCH (05:31)
[2017-02-08] MEDS: Escitalopram Oxalate 10 mg Tablet PO SCH (08:36)
[2017-02-08] MEDS: Mesalamine DR 400 mg Capsule PO SCH (08:37)
[2017-02-08] MEDS: Cilostazol 100 MG TAB PO SCH (08:37)
[2017-02-08] MEDS: Saccharomyces boulardii 250 MG CAP PO SCH ×2 (08:37→22:14)
[2017-02-08] MEDS: Gabapentin 300 MG CAP PO SCH ×3 (08:37→22:14)
[2017-02-08] MEDS: Enoxaparin Sodium 30 MG/0.3 ML SYRINGE SC SCH (08:37)
[2017-02-08] MEDS ORDERED: Famotidine 20 MG TAB PO SCH (09:00)
[2017-02-08] MEDS ORDERED: Amoxicillin/Potassium Clav 875 MG TAB PO SCH (09:00)
--- NOTE | 2017-02-08 10:27 | PDOC.PN ---
- Subjective Encounter Start Date: 02/08/17 Encounter Start Time: 09:00 Patient seen and examined. No new complaints. No overnight events, less diarrhoea, pt is not eating as she is worried about food makes worse - Objective Resuscitation Status: Resuscitation Status FULL:Full Resuscitation MAR Reviewed: Yes Vital Signs & Weight: Vital Signs (12 hours) Temp Pulse Resp BP BP Pulse Ox 02/08/17 08:00 97.4 F L 74 19 149/105 H 100 02/08/17 04:00 97.6 F 72 18 148/76 H 97 02/08/17 00:00 98.5 F 74 18 114/75 98 Weight Admit Weight 114 lb Weight 145 lb 8 oz I&O: 02/07/17 02/08/17 02/09/17 06:59 06:59 06:59 Intake Total 2200 5225 Balance 2200 5225 Result Diagrams: 02/08/17 04:29 02/08/17 04:29 Phys Exam - Physical Examination Constitutional: NAD HEENT: PERRLA, moist MMs, sclera anicteric Neck: no JVD, supple Respiratory: no wheezing, no rales, no rhonchi Cardiovascular: RRR, no significant murmur, no rub Gastrointestinal: soft, non-tender, no distention, positive bowel sounds Musculoskeletal: no edema, pulses present right AKA Neurological: non-focal, normal sensation Lymphatic: no nodes Psychiatric: normal affect, A&O x 3 Skin: no rash, normal turgor Dx/Plan (1) Hypophosphatemia Code(s): E83.39 - OTHER DISORDERS OF PHOSPHORUS METABOLISM Status: Acute (2) Hypomagnesemia Code(s): E83.42 - HYPOMAGNESEMIA Status: Acute (3) Acidosis, hyperchloremic Code(s): E87.2 - ACIDOSIS Status: Acute Comment: due to diarrhoea (4) Exacerbation of Crohn's disease Code(s): K50.90 - CROHN'S DISEASE, UNSPECIFIED, WITHOUT COMPLICATIONS Status: Acute (5) Hypokalemia Code(s): E87.6 - HYPOKALEMIA Status: Acute (6) UTI (urinary tract infection) Status: Acute (7) Anemia of chronic disease Code(s): D63.8 - ANEMIA IN OTHER CHRONIC DISEASES CLASSIFIED ELSEWHERE Status : Chronic (8) Anxiety and depression Code(s): F41.8 - OTHER SPECIFIED ANXIETY DISORDERS Status: Chronic (9) CREST syndrome Code(s): M34.1 - CR(E)ST SYNDROME Status: Chronic (10) Chronic obstructive pulmonary disease Status: Chronic (11) Dyslipidemia Code(s): E78.5 - HYPERLIPIDEMIA, UNSPECIFIED Status: Chronic (12) H/O above knee amputation Code(s): Z89.619 - ACQUIRED ABSENCE OF UNSPECIFIED LEG ABOVE KNEE Status: Chronic (13) Peripheral vascular disease Code(s): I73.9 - PERIPHERAL VASCULAR DISEASE, UNSPECIFIED Status: Chronic (14) Protein-calorie malnutrition, moderate Code(s): E44.0 - MODERATE PROTEIN-CALORIE MALNUTRITION Status: Chronic (15) Stasis ulcer of left lower extremity Code(s): I83.029 - VARICOSE VEINS OF LEFT LOWER EXTREMITY W ULCER OF UNSP SITE Status: Chronic Comment: ? Pyoderma gangrenosum (16) Vitamin D deficiency Code(s): E55.9 - VITAMIN D DEFICIENCY, UNSPECIFIED Status: Chronic - Plan cont current plan of care, continue antibiotics * will change IV antibiotic to augmentin * continue IV solumedrol * DC IVF * await GI input today * medication reviewed as below * symptomatic treatment * will slow taper prednisone on discharge * she will need follow up outpt with GI for ramicade therapy if needed. Review of Systems - Review of Systems Constitutional: Weakness. negative: Fever, Chills, Sweats, Malaise, Other Eyes: negative: Pain, Vision Change, Conjunctivae Inflammation, Eyelid Inflammation, Redness, Other ENT: negative: Ear Pain, Ear Discharge, Nose Pain, Nose Discharge, Nose Congestion, Mouth Pain, Mouth Swelling, Throat Pain, Throat Swelling, Other Respiratory: negative: Cough, Dry, Shortness of Breath, Hemoptysis, SOB with Excertion, Pleuritic Pain, Sputum, Wheezing Cardiovascular: negative: Chest Pain, Palpitations, Orthopnea, Paroxysmal Noc. Dyspnea, Edema, Light Headedness, Other Gastrointestinal: Diarrhea. negative: Nausea, Vomiting, Abdominal Pain, Constipation, Melena, Hematochezia, Other Genitourinary: negative: Dysuria, Frequency, Incontinence, Hematuria, Retention , Other Musculoskeletal: negative: Neck Pain, Shoulder Pain, Arm Pain, Back Pain, Hand Pain, Leg Pain, Foot Pain, Other Skin: negative: Rash, Lesions, Neto, Bruising, Other - Medications/Allergies Allergies/Adverse Reactions: Allergies Allergy/AdvReac Type Severity Reaction Status Date / Time No Known Drug Allergies Allergy Verified 01/18/17 16:32 Medications: Current Medications Acetaminophen (Tylenol) 650 mg PO Q4H PRN PRN Reason: Headache/Fever or Pain Hydrocodone Bitart/Acetaminophen ([place] 5/325) 1 tab PO Q4H PRN PRN Reason: Moderate Pain (4-6) Last Admin: 02/07/17 18:02 Dose: 1 tab Al Hydroxide/Mg Hydroxide (Maalox) 30 ml PO Q6H PRN PRN Reason: Heartburn or Indigestion Last Admin: 02/05/17 14:22 Dose: 30 ml Amoxicillin/Clavulanate Potassium (Augmentin) 875 mg PO Q12HR [facility] Last Admin: 02/08/17 08:36 Dose: 875 mg Artificial Tears (Tears Renewed 15ml Bottle) 0 drop EA EYE PRN PRN PRN Reason: Dry Eyes Aspirin (Aspirin Chewable) 81 mg PO DAILY [facility] Last Admin: 02/08/17 08:37 Dose: 81 mg Cilostazol (Pletal) 50 mg PO DAILY [facility] Last Admin: 02/08/17 08:37 Dose: 50 mg Enoxaparin Sodium (Lovenox) 30 mg SC 0900 [facility] Last Admin: 02/08/17 08:37 Dose: 30 mg Escitalopram Oxalate (Lexapro) 10 mg PO DAILY [facility] Last Admin: 02/08/17 08:36 Dose: 10 mg Famotidine (Pepcid) 20 mg PO BID [facility] Last Admin: 02/08/17 08:36 Dose: 20 mg Gabapentin (Neurontin) 300 mg PO TID [facility] Last Admin: 02/08/17 08:37 Dose: 300 mg Guaifenesin (Robitussin Sf) 200 mg PO Q4H PRN PRN Reason: Cough Hydralazine HCl (Apresoline) 10 mg SLOW IVP Q4H PRN PRN Reason: Systolic BP > 180 Loperamide HCl (Imodium) 2 mg PO PRN PRN PRN Reason: Diarrhea/Loose Stools Loratadine (Claritin) 10 mg PO DAILYPRN PRN PRN Reason: Sinus Symptoms Mesalamine (Delzicol Dr) 800 mg PO TID [facility] Last Admin: 02/08/17 08:37 Dose: 800 mg Methylprednisolone Sodium Succinate (Solu-Medrol) 40 mg IVP Q6HR [facility] Last Admin: 02/08/17 05:27 Dose: 40 mg Mineral Oil/White Petrolatum (Eucerin Cream) 0 gm TOP BIDPRN PRN PRN Reason: Dry Skin Mirtazapine (Remeron) 15 mg PO HS [facility] Last Admin: 02/07/17 20:09 Dose: 15 mg Nitroglycerin (Nitrostat) 0.4 mg SL Q5MIN PRN PRN Reason: Chest Pain Ondansetron HCl (Zofran Odt) 4 mg PO Q6H PRN PRN Reason: Nausea/Vomiting Ondansetron HCl (Zofran) 4 mg IVP Q6H PRN PRN Reason: Nausea/Vomiting Pentoxifylline (Trental) 400 mg PO BID [facility] Last Admin: 02/08/17 08:36 Dose: 400 mg Phenol (Chloraseptic [place] 180 Ml Bot) 0 ml PO PRN PRN PRN Reason: Sore Throat Rosuvastatin Calcium (Crestor) 5 mg PO [facility] Last Admin: 02/07/17 20:17 Dose: 5 mg Saccharomyces Boulardii (Florastor) 250 mg PO BID [facility] Last Admin: 02/08/17 08:37 Dose: 250 mg Sodium Chloride ([place] Nasal [place] 0.65%) 0 ml EA NARE QIDPRN PRN PRN Reason: Nasal Congestion Sodium Chloride (Flush - Normal Saline) 10 ml IVF Q12HR [facility] Last Admin: 02/08/17 08:38 Dose: 10 ml Sodium Chloride (Flush - Normal Saline) 10 ml IVF PRN PRN PRN Reason: Saline Flush Zolpidem Tartrate (Ambien) 5 mg PO HSPRN PRN PRN Reason: Insomnia
[2017-02-08] MEDS: HYDROcodone/Acetaminophen 5/325 mg Tablet PO PRN (11:36)
[2017-02-08] MEDS: Ondansetron HCl/PF 4 MG/2 ML Vial IVP PRN (11:45)
[2017-02-08] MEDS ORDERED: HYDROcodone/Acetaminophen 5/325 mg Tablet PO SCH (13:00)
[2017-02-08] MEDS ORDERED: D10W AA 8.5% With Lytes 1000 ML BAG IV SCH (14:45)
[2017-02-08] MEDS: Potassium Chloride 10 MEQ, Admixture Fee 1 EACH in Dextrose 5 % And 0.9 % NaCl 1,000 ML IV SCH (15:25)
[2017-02-08 15:39] LABS: Bilirubin Negative (Negative); Blood, Urine Negative (Negative); Glucose, Urine (Dipstick) 100 mg/dL (Negative); Ketone, Urine Negative (Negative); Nitrite Negative (Negative); Protein, Urine (Dipstick) Negative (Neg-Trace); Urobilinogen 0.2 mg/dL (0.2-1.0)
[2017-02-08 15:41] LABS: Bacteria/HPF None Seen HPF (None Seen); RBC/HPF 0-3 HPF (0-3)
[2017-02-08 15:52] LABS: Hyaline Casts/LPF 0-3 HYALINE CAST LPF (0-3 Hyaline); Renal Epithelial None Seen HPF (0-3); Transitional Epithelial NONE SEEN HPF (0-3)
[2017-02-08] MEDS ORDERED: Nitroglycerin 2% Ointment 1 INCH/1 GM Packet TOP PRN (16:59)
--- NOTE | 2017-02-08 17:41 | RAD ---
TWO VIEWS OF THE ABDOMEN: 02/08/17 INDICATION: History of Crohn's disease and abdominal pain. COMPARISON: CT of the abdomen and pelvis dated 02/04/17. FINDINGS: Bowel gas pattern is nonspecific but without evidence of obstruction. No definite free air is demonst rated. The lung bases are clear. There is scattered vascular calcifications. There is scattered degen erative change. IMPRESSION: 1. Bowel gas pattern is nonobstructed. 2. No free air is demonstrated. POS: [facility]
[2017-02-08 19:27] LABS: Troponin I 0.591 ng/mL (< 0.028)
[2017-02-08] MEDS: Pantoprazole 40 MG VIAL IVP SCH (22:14)
[2017-02-08] MEDS: Mirtazapine 15 MG TAB PO SCH (22:14)
[2017-02-08] MEDS: Enoxaparin Sodium 80 MG/0.8 ML SYRINGE SC SCH (22:26)
--- NOTE | 2017-02-08 23:54 | PRG ---
DATE OF SERVICE: 02/08/2017 SUBJECTIVE: Ms. Robert and her significant other state that she is having quite a bit of pain today. She states that she threw up the hydrocodone that she was given for pain. She is not sure she is v oiding. She reports she is having numerous loose stools as do the nurses. OBJECTIVE: VITAL SIGNS: Temperature is 97, pulse 74, blood pressure 149/105. LUNGS: Clear. HEART: Regular rhythm. ABDOMEN: Soft. There is no rebound. There is no guarding. There is some protuberance in the supra pubic region. Nurse note that on bladder scan, there is about 250 mL of urine there. LABORATORY STUDIES: White count has dropped down to 10.6 today, hemoglobin is 8.9 and stable, platel ets are 283. Chemistry: Sodium 143, potassium 4.4, BUN and creatinine are 8 and 0.87. C-reactive p rotein is 3.1. studies were negative. QuantiFERON is pending. ASSESSMENT: 1. Crohn's disease, ileal disease. 2. History of CREST syndrome. 3. Chronic obstructive pulmonary disease. 4. Peripheral vascular disease with previous amputation. RECOMMENDATIONS: 1. At this time, there is no role for antibiotics and treatment for inflammatory bowel disease. 2. Continue IV steroids. 3. Await QuantiFERON if negative, start Remicade. 4. Walker catheter. 5. I do not think she will go home without starting Remicade here. 6. We will defer pain management to primary care. 7. We would recommend changing the IV fluids to TPN if she has not improved in the next 48 hours, we will need to consider TPN.
[2017-02-09 00:30] LABS: Troponin I 2.513 ng/mL (< 0.028)
[2017-02-09] MEDS: Potassium Chloride 10 MEQ, Admixture Fee 1 EACH in Dextrose 5 % And 0.9 % NaCl 1,000 ML IV SCH ×2 (06:03→18:17)
[2017-02-09 06:09] LABS: Anion Gap 13 mmol/L (10-20); BUN (Urea Nitrogen) 18 mg/dL (9.8-20.1); Calc. Creatinine Clearance 48 mL/min (70-130); Carbon Dioxide 16 mmol/L (23-31); Chloride 118 mmol/L (98-107); Estimated GFR-MDRD 53; Magnesium 1.9 mg/dL (1.6-2.6); Phosphorus 2.4 mg/dL (2.3-4.7)
[2017-02-09 06:14] LABS: Band 10 % (5-11); Hematocrit 28.2 % (36.0-47.0); Hypochromia SLIGHT = 6-15 cells (100X) (0-5/hpf); Mean Platelet Volume 9.3 fL (7.4-10.4); Neutrophil 80 % (42-75); Red Blood Cell (RBC) Count 3.42 mill/uL (4.20-5.40); White Blood Cell (WBC) Count 10.5 thou/uL (4.8-10.8)
[2017-02-09 06:17] LABS: Troponin I 2.739 ng/mL (< 0.028)
[2017-02-09] MEDS: Aspirin 325 MG TAB PO SCH (08:42)
[2017-02-09] MEDS: Nitroglycerin 2% Ointment 1 INCH/1 GM Packet TOP SCH ×3 (08:42→22:03)
[2017-02-09] MEDS: Gabapentin 300 MG CAP PO SCH ×3 (08:43→21:37)
[2017-02-09] MEDS: Escitalopram Oxalate 10 mg Tablet PO SCH (08:43)
[2017-02-09] MEDS: Pantoprazole 40 MG VIAL IVP SCH ×2 (08:43→21:39)
[2017-02-09] MEDS: Cilostazol 100 MG TAB PO SCH (08:43)
[2017-02-09] MEDS: Saccharomyces boulardii 250 MG CAP PO SCH ×2 (08:43→21:36)
[2017-02-09] MEDS: Enoxaparin Sodium 80 MG/0.8 ML SYRINGE SC SCH ×2 (08:44→21:41)
--- NOTE | 2017-02-09 11:03 | PDOC.PN ---
- Subjective Encounter Start Date: 02/09/17 Encounter Start Time: 08:00 yesterday for her chest pain and abnormal EKG I transferred to [facility], subsequently she had troponin elevated, lovenox give, this morning pt does not have any chest pain, no dyspnea - Objective Resuscitation Status: Resuscitation Status FULL:Full Resuscitation MAR Reviewed: Yes Vital Signs & Weight: Vital Signs (12 hours) Temp Pulse Resp BP Pulse Ox 02/09/17 08:39 99.0 F 93 18 132/76 96 02/09/17 04:00 97.6 F 98 20 123/73 98 Weight Admit Weight 114 lb Weight 145 lb 5 oz I&O: 02/08/17 02/09/17 02/10/17 06:59 06:59 06:59 Intake Total 5225 1955 Output Total 1075 Balance 5225 880 Result Diagrams: 02/09/17 05:00 02/09/17 05:00 EKG Reviewed by me: Yes (NSR) Phys Exam - Physical Examination Constitutional: NAD HEENT: PERRLA, moist MMs, sclera anicteric Neck: no JVD, supple Respiratory: no wheezing, no rales, no rhonchi Cardiovascular: RRR, no significant murmur, no rub Gastrointestinal: soft, non-tender, no distention, positive bowel sounds Musculoskeletal: no edema, pulses present right AKA Neurological: non-focal, normal sensation Lymphatic: no nodes Psychiatric: normal affect Skin: no rash, normal turgor Dx/Plan (1) NSTEMI (non-ST elevated myocardial infarction) Code(s): I21.4 - NON-ST ELEVATION (NSTEMI) MYOCARDIAL INFARCTION Status: Acute (2) Hypophosphatemia Code(s): E83.39 - OTHER DISORDERS OF PHOSPHORUS METABOLISM Status: Resolved (3) Hypomagnesemia Code(s): E83.42 - HYPOMAGNESEMIA Status: Resolved (4) Acidosis, hyperchloremic Code(s): E87.2 - ACIDOSIS Status: Acute Comment: due to diarrhoea (5) Exacerbation of Crohn's disease Code(s): K50.90 - CROHN'S DISEASE, UNSPECIFIED, WITHOUT COMPLICATIONS Status: Acute (6) Hypokalemia Code(s): E87.6 - HYPOKALEMIA Status: Resolved (7) UTI (urinary tract infection) Status: Acute (8) Anemia of chronic disease Code(s): D63.8 - ANEMIA IN OTHER CHRONIC DISEASES CLASSIFIED ELSEWHERE Status : Chronic (9) Anxiety and depression Code(s): F41.8 - OTHER SPECIFIED ANXIETY DISORDERS Status: Chronic (10) CREST syndrome Code(s): M34.1 - CR(E)ST SYNDROME Status: Chronic (11) Chronic obstructive pulmonary disease Status: Chronic (12) Dyslipidemia Code(s): E78.5 - HYPERLIPIDEMIA, UNSPECIFIED Status: Chronic (13) H/O above knee amputation Code(s): Z89.619 - ACQUIRED ABSENCE OF UNSPECIFIED LEG ABOVE KNEE Status: Chronic Qualifiers: Laterality: right Qualified Code(s): Z89.611 - Acquired absence of right leg above knee (14) Peripheral vascular disease Code(s): I73.9 - PERIPHERAL VASCULAR DISEASE, UNSPECIFIED Status: Chronic (15) Protein-calorie malnutrition, moderate Code(s): E44.0 - MODERATE PROTEIN-CALORIE MALNUTRITION Status: Chronic (16) Stasis ulcer of left lower extremity Code(s): I83.029 - VARICOSE VEINS OF LEFT LOWER EXTREMITY W ULCER OF UNSP SITE Status: Chronic Comment: (17) Vitamin D deficiency Code(s): E55.9 - VITAMIN D DEFICIENCY, UNSPECIFIED Status: Chronic - Plan cont current plan of care, continue antibiotics * continue gentle IVF * continue IV levaquin * reduce solumedrol * Echo today * cardiology consulted, will need cardiac cath * continue aspirin, lovenox, statin, BB * check lipid profile tomorrow. * add ferrous sulfate, thera-M Review of Systems - Review of Systems Constitutional: negative: Fever, Chills, Sweats, Weakness, Malaise, Other Respiratory: negative: Cough, Dry, Shortness of Breath, Hemoptysis, SOB with Excertion, Pleuritic Pain, Sputum, Wheezing Cardiovascular: negative: Chest Pain, Palpitations, Orthopnea, Paroxysmal Noc. Dyspnea, Edema, Light Headedness, Other Gastrointestinal: negative: Nausea, Vomiting, Abdominal Pain, Diarrhea, Constipation, Melena, Hematochezia, Other Genitourinary: negative: Dysuria, Frequency, Incontinence, Hematuria, Retention , Other Musculoskeletal: negative: Neck Pain, Shoulder Pain, Arm Pain, Back Pain, Hand Pain, Leg Pain, Foot Pain, Other Skin: negative: Rash, Lesions, Neto, Bruising, Other - Medications/Allergies Allergies/Adverse Reactions: Allergies Allergy/AdvReac Type Severity Reaction Status Date / Time No Known Drug Allergies Allergy Verified 01/18/17 16:32 Medications: Current Medications Acetaminophen (Tylenol) 650 mg PO Q4H PRN PRN Reason: Headache/Fever or Pain Hydrocodone Bitart/Acetaminophen ([place] 5/325) 1 tab PO Q4H PRN PRN Reason: Moderate Pain (4-6) Last Admin: 02/08/17 11:36 Dose: 1 tab Al Hydroxide/Mg Hydroxide (Maalox) 30 ml PO Q6H PRN PRN Reason: Heartburn or Indigestion Last Admin: 02/05/17 14:22 Dose: 30 ml Amino Acids/Electrolytes/Dextrose (Aa 8.5%-D10w W/ [place]) 1,000 ml IV ONE [facility] Stop: 02/09/17 14:00 Last Admin: 02/08/17 16:55 Dose: 1,000 ml Artificial Tears (Tears Renewed 15ml Bottle) 0 drop EA EYE PRN PRN PRN Reason: Dry Eyes Aspirin (Aspirin) 325 mg PO DAILY [facility] Last Admin: 02/09/17 08:42 Dose: 325 mg Cilostazol (Pletal) 50 mg PO DAILY [facility] Last Admin: 02/09/17 08:43 Dose: 50 mg Dicyclomine HCl (Bentyl) 10 mg IM QID PRN PRN Reason: GI Cramping Last Admin: 02/08/17 15:20 Dose: 10 mg Enoxaparin Sodium (Lovenox) 65 mg SC 0900,2100 [facility] Last Admin: 02/09/17 08:44 Dose: 65 mg Escitalopram Oxalate (Lexapro) 10 mg PO DAILY [facility] Last Admin: 02/09/17 08:43 Dose: 10 mg Gabapentin (Neurontin) 300 mg PO TID [facility] Last Admin: 02/09/17 08:43 Dose: 300 mg Guaifenesin (Robitussin Sf) 200 mg PO Q4H PRN PRN Reason: Cough Hydralazine HCl (Apresoline) 10 mg SLOW IVP Q4H PRN PRN Reason: Systolic BP > 180 Potassium Chloride 10 meq/Miscellaneous Medication 1 each/ Dextrose/Sodium Chloride 1,005 mls @ 75 mls/hr IV .[id number] [facility] Last Admin: 02/09/17 06:03 Dose: 1,005 mls Levofloxacin 500 mg/ Device 100 mls @ 100 mls/hr IVPB 1500 [facility] Last Admin: 02/08/17 15:04 Dose: 100 mls Loperamide HCl (Imodium) 2 mg PO PRN PRN PRN Reason: Diarrhea/Loose Stools Loratadine (Claritin) 10 mg PO DAILYPRN PRN PRN Reason: Sinus Symptoms Methylprednisolone Sodium Succinate (Solu-Medrol) 20 mg IVP Q8HR [facility] Mineral Oil/White Petrolatum (Eucerin Cream) 0 gm TOP BIDPRN PRN PRN Reason: Dry Skin Mirtazapine (Remeron) 15 mg PO [facility] Last Admin: 02/08/17 22:14 Dose: 15 mg Morphine Sulfate (Morphine) 4 mg SLOW IVP Q4H PRN PRN Reason: Pain Nitroglycerin (Nitrostat) 0.4 mg SL Q5MIN PRN PRN Reason: Chest Pain Last Admin: 02/08/17 17:05 Dose: 0.4 mg Nitroglycerin (Nitro-Bid 2% Ointment) 0.5 inch TOP Q8H [facility] Last Admin: 02/09/17 08:42 Dose: 0.5 inch Ondansetron HCl (Zofran Odt) 4 mg PO Q6H PRN PRN Reason: Nausea/Vomiting Ondansetron HCl (Zofran) 4 mg IVP Q6H PRN PRN Reason: Nausea/Vomiting Last Admin: 02/08/17 11:45 Dose: 4 mg Pantoprazole Sodium (Protonix) 40 mg IVP Q12HR [facility] Last Admin: 02/09/17 08:43 Dose: 40 mg Pentoxifylline (Trental) 400 mg PO BID [facility] Last Admin: 02/08/17 22:14 Dose: 400 mg Phenol (Chloraseptic [place] 180 Ml Bot) 0 ml PO PRN PRN PRN Reason: Sore Throat Rosuvastatin Calcium (Crestor) 5 mg PO [facility] Last Admin: 02/08/17 22:14 Dose: 5 mg Saccharomyces Boulardii (Florastor) 250 mg PO BID [facility] Last Admin: 02/09/17 08:43 Dose: 250 mg Sodium Chloride ([place] Nasal [place] 0.65%) 0 ml EA NARE QIDPRN PRN PRN Reason: Nasal Congestion Sodium Chloride (Flush - Normal Saline) 10 ml IVF Q12HR [facility] Last Admin: 02/09/17 08:44 Dose: Not Given Sodium Chloride (Flush - Normal Saline) 10 ml IVF PRN PRN PRN Reason: Saline Flush Zolpidem Tartrate (Ambien) 5 mg PO HSPRN PRN PRN Reason: Insomnia
[2017-02-09] MEDS ORDERED: Metoprolol Tartrate 25 MG TAB PO SCH ×2 (12:30→21:00)
[2017-02-09] MEDS: Mesalamine DR 400 mg Capsule PO SCH ×2 (15:00→21:37)
--- NOTE | 2017-02-09 20:18 | PRG ---
DATE OF SERVICE: 02/09/2017 OBJECTIVE: Today Ms. Robert feels better. She is tolerating liquids. She states her abdominal pain is a lot better today. She is not really sure why she got bad yesterday. She did get little Bentyl which helped. Apparently, she developed chest pain after that and then had an EKG and some troponin s were mildly elevated with history of vascular disease. She was moved to telemetry and seems cardia c consult has now been put in. Presently, she has no chest pain. She denies any abdominal pain, sti ll having some loose stools. PRESENT MEDICATIONS: P.r.n. Tylenol, aspirin 325 mg daily, Pletal, D5 normal saline at 75, Bentyl p. r.n., Lovenox 65 b.i.d., Lexapro, Pepcid discontinued, Neurontin, Apresoline, hydrocodone p.r.n., lev ofloxacin, loperamide, loratadine, Solu-Medrol 20 IV q.8 h. mesalamine, I held yesterday she felt thi s may be caused her pain, metoprolol 25 mg daily, mirtazapine at bedtime, Protonix 40 daily, saccharo myces boulardii. PHYSICAL EXAMINATION: VITAL SIGNS: Temperature 98, pulse 108-115, blood pressure 139/73. GENERAL: Patient is resting comfortably in bed. She is much more relaxed today. LUNGS: Clear. HEART: Regular rate and rhythm. ABDOMEN: Soft, nontender. LABORATORY STUDIES: White count is 10.5, hemoglobin is 8.6, and platelet count is 252. Sodium 142, potassium 4.7, BUN and creatinine are 18 and 1.02. LFTs were normal. Troponin was 0.59 and 2.51 and 2.73 early this morning, CRP was 3.18 yesterday. Plain films of the abdomen showed no evidence of o bstruction or free air yesterday. ASSESSMENT: Crohn's disease, recently diagnosed. We are going to restart 5-ASA meds. I do not thin k this is causing her pain. She was pretty agitated yesterday. She had some family in the room whic h seemed a heightened that. We are going to try and put her on soft diet tomorrow.
[2017-02-09] MEDS: Mirtazapine 15 MG TAB PO SCH (21:36)
[2017-02-10 05:31] LABS: #Lymphocytes 1.6 thou/uL (1.20-3.40); #Monocytes 0.3 thou/uL (0.11-0.59); #Neutrophils 7.5 thou/uL (1.40-6.50); %Basophils 0.1 % (0.0-1.0); %Eosinophils 0.5 % (0.0-10.0); %Lymphocytes 17.3 % (21.0-51.0); %Monocytes 2.8 % (0.0-10.0); Hematocrit 29.7 % (36.0-47.0); Mean Platelet Volume 9.8 fL (7.4-10.4); Red Blood Cell (RBC) Count 3.69 mill/uL (4.20-5.40); White Blood Cell (WBC) Count 9.4 thou/uL (4.8-10.8)
[2017-02-10 05:32] LABS: Anion Gap 12 mmol/L (10-20); BUN (Urea Nitrogen) 24 mg/dL (9.8-20.1); Calc. Creatinine Clearance 39 mL/min (70-130); Calcium 8.3 mg/dL (7.8-10.44); Carbon Dioxide 15 mmol/L (23-31); Chloride 120 mmol/L (98-107); Cholesterol 87 mg/dl (< 200 Desired); Estimated GFR-MDRD 41; LDL Cholesterol, Calculated 31 mg/dL
--- NOTE | 2017-02-10 06:42 | CON ---
DATE OF CONSULTATION: 02/09/2017 HISTORY OF PRESENT ILLNESS: Eduardo Robert is a 76-year-old white female who was admitted on 01/18/2017 with Crohn's flare up and is again admitted at this time with abdominal pain, inability to eat. She was becoming increasingly weak. After being admitted, she had what she describes an epigastric pain that lasted 10 to 12 hours and was unrelenting. She was then admitted to telemetry and had mildly elevated troponin I, but normal CK-MB. At the present time, she is pain free. She has had [address] Gallo, the last of which was approximately one year ago. PAST MEDICAL HISTORY: Coronary artery disease, Crohn's disease, CREST syndrome , hypertension, COPD. OPERATIONS: Include right [id number] amputation, right carotid stenting, CABG, breast lumpectomy, tonsillectomy, stent placement in her legs. HOME MEDICATIONS: Include pentoxifylline 400 mg b.i.d., Aubrey p.r.n., gabapentin 300 mg t.i.d., prednisone 5 daily, Remeron 15 mg daily, Crestor 5 daily, Pletal 50 mg b.i.d., Lexapro 10 daily, Plavix 75 daily, aspirin 81 daily , lisinopril 10 daily. REVIEW OF SYSTEMS: Ten point review of systems otherwise unremarkable. PHYSICAL EXAMINATION: VITAL SIGNS: 129/76, pulse of 85. HEENT: PERRL. NECK: Supple. CHEST: Clear. CARDIAC: S1 and S2 are normal, without any S3, S4 or murmurs. ABDOMEN: Normal bowel sounds, without tenderness or organomegaly. EXTREMITIES: Revealed no clubbing, cyanosis, or edema. NEUROLOGIC: Grossly intact. SKIN: Warm and dry. LABORATORY DATA AND IMAGING: EKG revealed sinus tachycardia with rate of 111 per minute, low voltage QRS, nonspecific ST changes. She also has had some episodes of supraventricular tachycardia with rate of approximately 170. Echocardiogram revealed the study to be technically difficult. There was moderate left ventricular systolic dysfunction with ejection fraction of 35-40% , evidence of diastolic dysfunction, left atrial enlargement, moderate mitral regurgitation, severe tricuspid regurgitation, and mild pulmonic regurgitation. Hemoglobin 8.6, hematocrit 28.2, white count 10,500, platelets 252,000. Sodium 142, potassium 4.7, chloride 118, carbon dioxide 16, BUN 18, creatinine 1.02, glucose 177. CK-MB is normal x3. Troponin I is 2.739. IMPRESSION: 1. Elevated troponin I; however, normal CK-MB. To me she only stated that she had epigastric pain, not really chest pain. It would seem as if her 10 to 12 hours of epigastric pain were cardiac related, that she would have much higher enzymes total. 2. History of coronary artery bypass grafting and multiple stent placement. 3. Moderate left ventricular dysfunction with ejection fraction of 35-40%. 4. Hypertension. 5. Hyperlipidemia. 6. Urinary tract infection with Klebsiella pneumoniae. 7. Crohn's disease with current flareup. 8. Anemia of chronic disease. 9. Status post right [id number] amputation. 10. Anxiety and depression. PLAN: I have discussed this with Ms. Robert her abnormal cardiac enzymes and certainly this may be due to demand ischemia with a normal CK-MB. 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 We discussed possible dangers involved in doing that. However, she basically just wants to go home. DONNA
[2017-02-10] MEDS: Potassium Chloride 10 MEQ, Admixture Fee 1 EACH in Dextrose 5 % And 0.9 % NaCl 1,000 ML IV SCH (07:26)
[2017-02-10] MEDS ORDERED: Ferrous Sulfate 325 MG TAB PO SCH (08:00)
[2017-02-10] MEDS: [UNRECOGNIZED DRUG - OTHER] IV SCH ×2 (09:17→22:15)
[2017-02-10] MEDS: SODIUM BICARBONATE IV SCH ×2 (09:17→22:15)
[2017-02-10] MEDS: POTASSIUM CHLORIDE IV SCH ×2 (09:17→22:15)
[2017-02-10] MEDS: Nitroglycerin 2% Ointment 1 INCH/1 GM Packet TOP SCH ×3 (09:18→22:36)
[2017-02-10] MEDS: Enoxaparin Sodium 80 MG/0.8 ML SYRINGE SC SCH ×2 (09:18→22:13)
[2017-02-10] MEDS: Metoprolol Tartrate 50 MG TAB PO SCH ×2 (09:20→22:12)
[2017-02-10] MEDS: Pantoprazole 40 MG VIAL IVP SCH ×2 (09:20→22:12)
[2017-02-10] MEDS: HYDROcodone/Acetaminophen 5/325 mg Tablet PO PRN (10:08)
[2017-02-10] MEDS: Loperamide HCl 2 MG CAP PO PRN ×2 (10:12→22:12)
--- NOTE | 2017-02-10 10:38 | PDOC.PN ---
- Subjective Encounter Start Date: 02/10/17 Encounter Start Time: 08:40 pt has upper abdominal pain, has diarrhoea, no chest pain, son bedside, pt agreed for cardiac cath - Objective Resuscitation Status: Resuscitation Status FULL:Full Resuscitation MAR Reviewed: Yes Vital Signs & Weight: Vital Signs (12 hours) Temp Pulse Resp BP Pulse Ox 02/10/17 09:14 98.0 F 81 16 130/80 100 02/10/17 09:00 98.0 F 81 16 100 02/10/17 04:00 98.0 F 89 20 155/84 H 97 Weight Admit Weight 114 lb Weight 133 lb 1.6 oz I&O: 02/09/17 02/10/17 02/11/17 06:59 06:59 06:59 Intake Total 1955 1280 1170 Output Total 1075 300 350 Balance 880 980 820 Result Diagrams: 02/10/17 04:20 02/10/17 04:20 EKG Reviewed by me: Yes (nsr) Phys Exam - Physical Examination Constitutional: NAD HEENT: PERRLA, moist MMs, sclera anicteric Neck: no JVD, supple Respiratory: no wheezing, no rales, no rhonchi Cardiovascular: RRR, no significant murmur, no rub Gastrointestinal: soft, non-tender, no distention, positive bowel sounds Musculoskeletal: no edema, pulses present right AKA Neurological: non-focal, normal sensation Lymphatic: no nodes Psychiatric: normal affect Skin: no rash, normal turgor Dx/Plan (1) NSTEMI (non-ST elevated myocardial infarction) Code(s): I21.4 - NON-ST ELEVATION (NSTEMI) MYOCARDIAL INFARCTION Status: Acute (2) Hypophosphatemia Code(s): E83.39 - OTHER DISORDERS OF PHOSPHORUS METABOLISM Status: Resolved (3) Hypomagnesemia Code(s): E83.42 - HYPOMAGNESEMIA Status: Resolved (4) Acidosis, hyperchloremic Code(s): E87.2 - ACIDOSIS Status: Acute Comment: due to diarrhoea (5) Exacerbation of Crohn's disease Code(s): K50.90 - CROHN'S DISEASE, UNSPECIFIED, WITHOUT COMPLICATIONS Status: Acute (6) Hypokalemia Code(s): E87.6 - HYPOKALEMIA Status: Resolved (7) UTI (urinary tract infection) Status: Acute (8) Anemia of chronic disease Code(s): D63.8 - ANEMIA IN OTHER CHRONIC DISEASES CLASSIFIED ELSEWHERE Status : Chronic (9) Anxiety and depression Code(s): F41.8 - OTHER SPECIFIED ANXIETY DISORDERS Status: Chronic (10) CREST syndrome Code(s): M34.1 - CR(E)ST SYNDROME Status: Chronic (11) Chronic obstructive pulmonary disease Status: Chronic (12) Dyslipidemia Code(s): E78.5 - HYPERLIPIDEMIA, UNSPECIFIED Status: Chronic (13) H/O above knee amputation Code(s): Z89.619 - ACQUIRED ABSENCE OF UNSPECIFIED LEG ABOVE KNEE Status: Chronic Qualifiers: Laterality: right Qualified Code(s): Z89.611 - Acquired absence of right leg above knee (14) Peripheral vascular disease Code(s): I73.9 - PERIPHERAL VASCULAR DISEASE, UNSPECIFIED Status: Chronic (15) Protein-calorie malnutrition, moderate Code(s): E44.0 - MODERATE PROTEIN-CALORIE MALNUTRITION Status: Chronic (16) Stasis ulcer of left lower extremity Code(s): I83.029 - VARICOSE VEINS OF LEFT LOWER EXTREMITY W ULCER OF UNSP SITE Status: Chronic Comment: (17) Vitamin D deficiency Code(s): E55.9 - VITAMIN D DEFICIENCY, UNSPECIFIED Status: Chronic (18) Combined systolic and diastolic cardiac dysfunction Code(s): I51.89 - OTHER ILL-DEFINED HEART DISEASES Status: Acute (19) Severe tricuspid regurgitation Code(s): I07.1 - RHEUMATIC TRICUSPID INSUFFICIENCY Status: Chronic - Plan cont current plan of care, plan discussed w/ family, continue antibiotics * will keep NPO after midnight for cardiac cath * continue reduced dose of steroid * continue optimum medical therapy for NSTEMI * continue levaquin * change IVF dex 1/2 NS with KCL and bicarb at 100 ml per hour * add sodium bicarbonate PO * repeat labs tomorrow * discussed with son. Review of Systems - Review of Systems Constitutional: negative: Fever, Chills, Sweats, Weakness, Malaise, Other Eyes: negative: Pain, Vision Change, Conjunctivae Inflammation, Eyelid Inflammation, Redness, Other ENT: negative: Ear Pain, Ear Discharge, Nose Pain, Nose Discharge, Nose Congestion, Mouth Pain, Mouth Swelling, Throat Pain, Throat Swelling, Other Respiratory: negative: Cough, Dry, Shortness of Breath, Hemoptysis, SOB with Excertion, Pleuritic Pain, Sputum, Wheezing Cardiovascular: negative: Chest Pain, Palpitations, Orthopnea, Paroxysmal Noc. Dyspnea, Edema, Light Headedness, Other Gastrointestinal: Abdominal Pain, Diarrhea. negative: Nausea, Vomiting, Constipation, Melena, Hematochezia, Other Genitourinary: negative: Dysuria, Frequency, Incontinence, Hematuria, Retention , Other Musculoskeletal: negative: Neck Pain, Shoulder Pain, Arm Pain, Back Pain, Hand Pain, Leg Pain, Foot Pain, Other Skin: negative: Rash, Lesions, Neto, Bruising, Other - Medications/Allergies Allergies/Adverse Reactions: Allergies Allergy/AdvReac Type Severity Reaction Status Date / Time No Known Drug Allergies Allergy Verified 01/18/17 16:32 Medications: Current Medications Acetaminophen (Tylenol) 650 mg PO Q4H PRN PRN Reason: Headache/Fever or Pain Hydrocodone Bitart/Acetaminophen (Bernie 5/325) 1 tab PO Q4H PRN PRN Reason: Moderate Pain (4-6) Last Admin: 02/10/17 10:08 Dose: 1 tab Al Hydroxide/Mg Hydroxide (Maalox) 30 ml PO Q6H PRN PRN Reason: Heartburn or Indigestion Last Admin: 02/05/17 14:22 Dose: 30 ml Artificial Tears (Tears Renewed 15ml Bottle) 0 drop EA EYE PRN PRN PRN Reason: Dry Eyes Aspirin (Aspirin) 325 mg PO DAILY [facility] Last Admin: 02/09/17 08:42 Dose: 325 mg Cilostazol (Pletal) 50 mg PO DAILY [facility] Last Admin: 02/09/17 08:43 Dose: 50 mg Dicyclomine HCl (Bentyl) 10 mg IM QID PRN PRN Reason: GI Cramping Last Admin: 02/08/17 15:20 Dose: 10 mg Enoxaparin Sodium (Lovenox) 65 mg SC 0900,2100 [facility] Last Admin: 02/10/17 09:18 Dose: 65 mg Escitalopram Oxalate (Lexapro) 10 mg PO DAILY [facility] Last Admin: 02/09/17 08:43 Dose: 10 mg Gabapentin (Neurontin) 300 mg PO TID [facility] Last Admin: 02/09/17 21:37 Dose: 300 mg Guaifenesin (Robitussin Sf) 200 mg PO Q4H PRN PRN Reason: Cough Hydralazine HCl (Apresoline) 10 mg SLOW IVP Q4H PRN PRN Reason: Systolic BP > 180 Levofloxacin 500 mg/ Device 100 mls @ 100 mls/hr IVPB 1500 [facility] Last Admin: 02/09/17 14:49 Dose: 100 mls Potassium Chloride 10 meq/Sodium Bicarbonate 50 meq/Dextrose/Sodium Chloride 1, 055 mls @ 100 mls/hr IV .[id number] [facility] Last Admin: 02/10/17 09:17 Dose: 1,055 mls Iron/Minerals/Multivitamins (Theragran M) 1 tab PO DAILY [facility] Loperamide HCl (Imodium) 2 mg PO PRN PRN PRN Reason: Diarrhea/Loose Stools Last Admin: 02/10/17 10:12 Dose: 2 mg Loratadine (Claritin) 10 mg PO DAILYPRN PRN PRN Reason: Sinus Symptoms Mesalamine (Delzicol Dr) 800 mg PO TID [facility] Last Admin: 02/09/17 21:37 Dose: 800 mg Methylprednisolone Sodium Succinate (Solu-Medrol) 20 mg IVP Q8HR [facility] Last Admin: 02/10/17 05:41 Dose: 20 mg Metoprolol Tartrate (Lopressor) 50 mg PO BID [facility] Last Admin: 02/10/17 09:20 Dose: 50 mg Mineral Oil/White Petrolatum (Eucerin Cream) 0 gm TOP BIDPRN PRN PRN Reason: Dry Skin Mirtazapine (Remeron) 15 mg PO HS [facility] Last Admin: 02/09/17 21:36 Dose: 15 mg Morphine Sulfate (Morphine) 4 mg SLOW IVP Q4H PRN PRN Reason: Pain Nitroglycerin (Nitrostat) 0.4 mg SL Q5MIN PRN PRN Reason: Chest Pain Last Admin: 02/08/17 17:05 Dose: 0.4 mg Nitroglycerin (Nitro-Bid 2% Ointment) 0.5 inch TOP Q8H [facility] Last Admin: 02/10/17 09:18 Dose: Not Given Ondansetron HCl (Zofran Odt) 4 mg PO Q6H PRN PRN Reason: Nausea/Vomiting Ondansetron HCl (Zofran) 4 mg IVP Q6H PRN PRN Reason: Nausea/Vomiting Last Admin: 12/15/17 11:45 Dose: 4 mg Pantoprazole Sodium (Protonix) 40 mg IVP Q12HR [facility] Last Admin: 02/10/17 09:20 Dose: 40 mg Pentoxifylline (Trental) 400 mg PO BID [facility] Last Admin: 02/09/17 21:38 Dose: 400 mg Phenol (Chloraseptic [place] 180 Ml Bot) 0 ml PO PRN PRN PRN Reason: Sore Throat Rosuvastatin Calcium (Crestor) 5 mg PO HS [facility] Last Admin: 02/09/17 21:36 Dose: 5 mg Saccharomyces Boulardii (Florastor) 250 mg PO BID [facility] Last Admin: 02/09/17 21:36 Dose: 250 mg Sodium Bicarbonate (Bicarbonate, Sodium) 650 mg PO BID [facility] Sodium Chloride ([place] Nasal [place] 0.65%) 0 ml EA NARE QIDPRN PRN PRN Reason: Nasal Congestion Sodium Chloride (Flush - Normal Saline) 10 ml IVF Q12HR [facility] Last Admin: 02/10/17 09:20 Dose: Not Given Sodium Chloride (Flush - Normal Saline) 10 ml IVF PRN PRN PRN Reason: Saline Flush Last Admin: 02/10/17 09:27 Dose: 10 ml Zolpidem Tartrate (Ambien) 5 mg PO HSPRN PRN PRN Reason: Insomnia
[2017-02-10] MEDS: Saccharomyces boulardii 250 MG CAP PO SCH ×2 (11:39→22:12)
[2017-02-10] MEDS: Sodium Bicarbonate Tab 325 MG TAB PO SCH ×3 (11:39→22:12)
[2017-02-10] MEDS: Gabapentin 300 MG CAP PO SCH ×4 (11:40→22:12)
[2017-02-10] MEDS: Multivitamin W/ Minerals 1 TAB PO SCH (11:40)
[2017-02-10] MEDS: Mesalamine DR 400 mg Capsule PO SCH ×4 (11:40→22:12)
[2017-02-10] MEDS: Escitalopram Oxalate 10 mg Tablet PO SCH (11:41)
[2017-02-10] MEDS: Aspirin 325 MG TAB PO SCH (11:41)
[2017-02-10] MEDS: Cilostazol 100 MG TAB PO SCH (11:52)
[2017-02-10] MEDS: Morphine 4 MG/ML VIAL SLOW IVP PRN ×2 (12:54→19:12)
[2017-02-10] MEDS: Mirtazapine 15 MG TAB PO SCH (22:12)
[2017-02-11 05:27] LABS: #Eosinphils 0.1 thou/uL (0.0-0.7); #Lymphocytes 2.1 thou/uL (1.20-3.40); #Monocytes 0.4 thou/uL (0.11-0.59); #Neutrophils 7.1 thou/uL (1.40-6.50); %Basophils 0.2 % (0.0-1.0); %Eosinophils 0.6 % (0.0-10.0); %Lymphocytes 22.2 % (21.0-51.0); %Monocytes 3.6 % (0.0-10.0); Hematocrit 27.6 % (36.0-47.0); Mean Platelet Volume 9.8 fL (7.4-10.4); Red Blood Cell (RBC) Count 3.38 mill/uL (4.20-5.40); White Blood Cell (WBC) Count 9.7 thou/uL (4.8-10.8)
[2017-02-11 05:40] LABS: Anion Gap 14 mmol/L (10-20); BUN (Urea Nitrogen) 28 mg/dL (9.8-20.1); Calc. Creatinine Clearance 36 mL/min (70-130); Calcium 7.7 mg/dL (7.8-10.44); Carbon Dioxide 15 mmol/L (23-31); Chloride 121 mmol/L (98-107); Estimated GFR-MDRD 42
--- NOTE | 2017-02-11 06:29 | PRG ---
DATE OF SERVICE: 02/19/2017 SUBJECTIVE: Ms. Robert had an epigastric pain today. They were talking about a heart catheterizatio n, she refused and wanted to go home, but then, it recurred and hospitalist talked to her about it ag cristine. Cardiology is going to come back talked to her for possible heart catheterization. She states her diarrhea persists about 4-5 times a day. She has had no nausea, no blood in the stool. The elba ent had a Walker removed today. She has not urinated yet. PHYSICAL EXAMINATION VITAL SIGNS: Temperature is 97, pulse 50, blood pressure 133/71. LUNGS: Clear. HEART: Regular rate and rhythm. ABDOMEN: Soft, nontender. LABORATORY STUDIES: White count 9.4, hemoglobin 9.1, platelet count 274. Sodium 143, potassium 4.2, BUN and creatinine 24 and 1.27. QuantiFERON came back indeterminate. Urinalysis on 02/08/2017, too numerous to count, positive leukocyte esterase. Urine culture on admission showed Klebsiella. ASSESSMENT AND PLAN: Crohn's disease. She remains on Solu-Medrol 40 IV q. 8 hours; this has been ch anged to 20, but it was increased back up. She continues to be on mesalamine that may be giving her some diarrhea, had stopped it for a few days and her symptoms seemed to get better, she will go ahead and stop again. She is on Saccharomyces boulardii. With regard to her Crohn's, it may come to the point where she needs to start a biologic agent or something else. She does not seem to be having a lot of effect. On her CT admission this time, she has cecal thickening, but the small bowel looked b torsten versus a CT on 01/18/2017, which the radiologist reported showing chronic disease in the ileum. Her scan on 01/06/2017 looks like it was done with IV contrast only. A CT on 01/18/2017 look s like it had oral contrast only. It may be reasonable once her cardiac status is more clear once co me up to [place] to consider a CT enterography or repeat endoscopy to see the status of her disease, alt tess she just had an endoscopy on 02/17/2017. A CT or MRI enterography would probably more helpful.
--- NOTE | 2017-02-11 09:01 | PQF ---
CLINICAL DOCUMENTATION IMPROVEMENT CLARIFICATION FORM: ICD-10 Updated PLEASE DO AN ADDENDUM TO THE PROGRESS NOTE WITH ANY DOCUMENTATION UPDATES OR ADDITIONS AND CARRY THROUGH TO DC SUMMARY. THANK YOU. DATE: 02/11 ATTN: DR. SIDNEY GRAMAJO Please exercise your independent, professional judgment in responding to the clarification form. Clinical indicators are provided on the bottom of this form for your review Please check appropriate box(s) to clarify if the following diagnosis has been ruled in our ruled out: PHYSICIAN H&P DOCUMENTATION 02/04: ASSESSMENT AND PLAN: 1. SEPSIS D/T URINARY TRACT INFECTION. 2. UTI LIKELY R/T RECENT URINARY CATHETERIZATION [ ] Ruled in diagnosis [ ] Continue to treat [ x ] Resolved [ ] Ruled out diagnosis [ ] Other diagnosis [ ] Unable to determine In addition, please specify: Present on Admission (POA): [x ] Yes [ ] No [ ] Unable to determine For continuity of documentation, please document condition throughout progress notes and discharge summary. Thank You. CLINICAL INDICATORS - SIGNS / SYMPTOMS / LABS PHYSICIAN H&P DOCUMENTATION 02/04: ASSESSMENT & PLAN: 1. SEPSIS D/T UTI; 2. UTI, LIKELY R/T RECENT URINARY CATHETERIZATION NO FURTHER MENTION OF SEPSIS TO DATE; NO FURTHER MENTION OF UTI R/T URINARY CATHETERIZATION WBC: 17.0 (ON ADMIT, 02/04) URINE: LARGE LEUKOCYTE ESTERASE, WBC TNTC, 3+ BACTERIA (ON ADMIT, 02/04) URINE CX: KLEBSIELLA PNEUMONIAE RISK FACTORS: RECENT HOSPITALIZATION (01/18/17) LEUKOCYTOSIS (17.0) DIFFUSE ABDOMINAL TENDERNESS NOTED, PREDOMINATELY SUPRAPUBIC TREATMENTS: IV ANTIBIOTICS (LEVAQUIN 02/04 - PRESENT; ROCEPHIN 02/04 - ) IVF (D5 1/2 NS W/20 mEq KCL 02/04 - ) THANK YOU! Neisha (This form is maintained as a part of the permanent medical record) 2014 [employer]. All Rights Reserved Neisha Ochoa RN, BSN [email or web address] Office: [phone] [facility]
--- NOTE | 2017-02-11 09:47 | PDOC.PN ---
- Subjective Encounter Start Date: 02/11/17 Encounter Start Time: 08:20 pt is NPO for possible cardiac cath today, pt wanted to eat this morning, has slow down diarrhoea, she is weak, no chest pain - Objective Resuscitation Status: Resuscitation Status FULL:Full Resuscitation MAR Reviewed: Yes Vital Signs & Weight: Vital Signs (12 hours) Temp Pulse Resp BP Pulse Ox 02/11/17 07:58 97.7 F 72 18 141/71 H 18 L 02/11/17 05:31 96 02/11/17 04:00 98.6 F 64 16 130/68 02/10/17 21:55 98.0 F 72 16 147/83 H 96 Weight Admit Weight 114 lb Weight 134 lb 14.4 oz I&O: 02/10/17 02/11/17 02/12/17 06:59 06:59 06:59 Intake Total 1280 2690 1278 Output Total 300 400 Balance 980 2290 1278 Result Diagrams: 02/11/17 04:21 02/11/17 04:21 EKG Reviewed by me: Yes (nsr) Phys Exam - Physical Examination Constitutional: NAD HEENT: PERRLA, moist MMs, sclera anicteric Neck: no JVD, supple Respiratory: no wheezing, no rales, no rhonchi Cardiovascular: RRR, no significant murmur, no rub Gastrointestinal: soft, non-tender, no distention, positive bowel sounds Musculoskeletal: no edema, pulses present right AKA Neurological: moves all 4 limbs Psychiatric: normal affect, A&O x 3 Skin: no rash, normal turgor Dx/Plan (1) NSTEMI (non-ST elevated myocardial infarction) Code(s): I21.4 - NON-ST ELEVATION (NSTEMI) MYOCARDIAL INFARCTION Status: Acute (2) Hypophosphatemia Code(s): E83.39 - OTHER DISORDERS OF PHOSPHORUS METABOLISM Status: Resolved (3) Hypomagnesemia Code(s): E83.42 - HYPOMAGNESEMIA Status: Resolved (4) Acidosis, hyperchloremic Code(s): E87.2 - ACIDOSIS Status: Acute Comment: due to diarrhoea (5) Exacerbation of Crohn's disease Code(s): K50.90 - CROHN'S DISEASE, UNSPECIFIED, WITHOUT COMPLICATIONS Status: Acute (6) Hypokalemia Code(s): E87.6 - HYPOKALEMIA Status: Resolved (7) UTI (urinary tract infection) Status: Acute (8) Anemia of chronic disease Code(s): D63.8 - ANEMIA IN OTHER CHRONIC DISEASES CLASSIFIED ELSEWHERE Status : Chronic (9) Anxiety and depression Code(s): F41.8 - OTHER SPECIFIED ANXIETY DISORDERS Status: Chronic (10) CREST syndrome Code(s): M34.1 - CR(E)ST SYNDROME Status: Chronic (11) Chronic obstructive pulmonary disease Status: Chronic (12) Dyslipidemia Code(s): E78.5 - HYPERLIPIDEMIA, UNSPECIFIED Status: Chronic (13) H/O above knee amputation Code(s): Z89.619 - ACQUIRED ABSENCE OF UNSPECIFIED LEG ABOVE KNEE Status: Chronic Qualifiers: Laterality: right Qualified Code(s): Z89.611 - Acquired absence of right leg above knee (14) Peripheral vascular disease Code(s): I73.9 - PERIPHERAL VASCULAR DISEASE, UNSPECIFIED Status: Chronic (15) Protein-calorie malnutrition, moderate Code(s): E44.0 - MODERATE PROTEIN-CALORIE MALNUTRITION Status: Chronic (16) Stasis ulcer of left lower extremity Code(s): I83.029 - VARICOSE VEINS OF LEFT LOWER EXTREMITY W ULCER OF UNSP SITE Status: Chronic Comment: (17) Vitamin D deficiency Code(s): E55.9 - VITAMIN D DEFICIENCY, UNSPECIFIED Status: Chronic (18) Combined systolic and diastolic cardiac dysfunction Code(s): I51.89 - OTHER ILL-DEFINED HEART DISEASES Status: Acute (19) Severe tricuspid regurgitation Code(s): I07.1 - RHEUMATIC TRICUSPID INSUFFICIENCY Status: Chronic - Plan cont current plan of care, continue antibiotics * cardiac cath if possible today * continue iv solumderol * continue iv levaquin * GI to decide further treatment plan * TB quantiferon and hepatitis negative * CT enterography after cardiac work up done * medication reviewed as below * symptomatic treatment. Review of Systems - Review of Systems Constitutional: Weakness. negative: Fever, Chills, Sweats, Malaise, Other Eyes: negative: Pain, Vision Change, Conjunctivae Inflammation, Eyelid Inflammation, Redness, Other ENT: negative: Ear Pain, Ear Discharge, Nose Pain, Nose Discharge, Nose Congestion, Mouth Pain, Mouth Swelling, Throat Pain, Throat Swelling, Other Respiratory: negative: Cough, Dry, Shortness of Breath, Hemoptysis, SOB with Excertion, Pleuritic Pain, Sputum, Wheezing Cardiovascular: negative: Chest Pain, Palpitations, Orthopnea, Paroxysmal Noc. Dyspnea, Edema, Light Headedness, Other Gastrointestinal: Diarrhea. negative: Nausea, Vomiting, Abdominal Pain, Constipation, Melena, Hematochezia, Other Genitourinary: negative: Dysuria, Frequency, Incontinence, Hematuria, Retention , Other Musculoskeletal: negative: Neck Pain, Shoulder Pain, Arm Pain, Back Pain, Hand Pain, Leg Pain, Foot Pain, Other Skin: negative: Rash, Lesions, Neot, Bruising, Other - Medications/Allergies Allergies/Adverse Reactions: Allergies Allergy/AdvReac Type Severity Reaction Status Date / Time No Known Drug Allergies Allergy Verified 01/18/17 16:32 Medications: Current Medications Acetaminophen (Tylenol) 650 mg PO Q4H PRN PRN Reason: Headache/Fever or Pain Hydrocodone Bitart/Acetaminophen ([place] 5/325) 1 tab PO Q4H PRN PRN Reason: Moderate Pain (4-6) Last Admin: 02/10/17 10:08 Dose: 1 tab Al Hydroxide/Mg Hydroxide (Maalox) 30 ml PO Q6H PRN PRN Reason: Heartburn or Indigestion Last Admin: 02/05/17 14:22 Dose: 30 ml Artificial Tears (Tears Renewed 15ml Bottle) 0 drop EA EYE PRN PRN PRN Reason: Dry Eyes Aspirin (Aspirin) 325 mg PO DAILY [facility] Last Admin: 02/10/17 11:41 Dose: 325 mg Cilostazol (Pletal) 50 mg PO DAILY [facility] Last Admin: 02/10/17 11:52 Dose: 50 mg Dicyclomine HCl (Bentyl) 10 mg IM QID PRN PRN Reason: GI Cramping Last Admin: 02/08/17 15:20 Dose: 10 mg Enoxaparin Sodium (Lovenox) 65 mg SC 0900,2100 [facility] Last Admin: 02/10/17 22:13 Dose: 65 mg Escitalopram Oxalate (Lexapro) 10 mg PO DAILY [facility] Last Admin: 02/10/17 11:41 Dose: 10 mg Gabapentin (Neurontin) 300 mg PO TID [facility] Last Admin: 02/10/17 22:12 Dose: 300 mg Guaifenesin (Robitussin Sf) 200 mg PO Q4H PRN PRN Reason: Cough Hydralazine HCl (Apresoline) 10 mg SLOW IVP Q4H PRN PRN Reason: Systolic BP > 180 Levofloxacin 500 mg/ Device 100 mls @ 100 mls/hr IVPB 1500 [facility] Last Admin: 02/10/17 14:48 Dose: 100 mls Potassium Chloride 10 meq/Sodium Bicarbonate 50 meq/Dextrose/Sodium Chloride 1, 055 mls @ 100 mls/hr IV .[id number] [facility] Last Admin: 02/10/17 22:15 Dose: 1,055 mls Iron/Minerals/Multivitamins (Theragran M) 1 tab PO DAILY [facility] Last Admin: 02/10/17 11:40 Dose: 1 tab Loperamide HCl (Imodium) 2 mg PO PRN PRN PRN Reason: Diarrhea/Loose Stools Last Admin: 02/10/17 22:12 Dose: 2 mg Loratadine (Claritin) 10 mg PO DAILYPRN PRN PRN Reason: Sinus Symptoms Mesalamine (Delzicol Dr) 800 mg PO TID [facility] Last Admin: 02/10/17 22:12 Dose: 800 mg Methylprednisolone Sodium Succinate (Solu-Medrol) 40 mg IVP Q8HR [facility] Last Admin: 02/11/17 06:45 Dose: 40 mg Metoprolol Tartrate (Lopressor) 50 mg PO BID [facility] Last Admin: 02/10/17 22:12 Dose: 50 mg Mineral Oil/White Petrolatum (Eucerin Cream) 0 gm TOP BIDPRN PRN PRN Reason: Dry Skin Mirtazapine (Remeron) 15 mg PO HS [facility] Last Admin: 02/10/17 22:12 Dose: 15 mg Morphine Sulfate (Morphine) 4 mg SLOW IVP Q4H PRN PRN Reason: Pain Last Admin: 02/10/17 19:12 Dose: 4 mg Nitroglycerin (Nitrostat) 0.4 mg SL Q5MIN PRN PRN Reason: Chest Pain Last Admin: 02/08/17 17:05 Dose: 0.4 mg Nitroglycerin (Nitro-Bid 2% Ointment) 0.5 inch TOP Q8H [facility] Last Admin: 02/10/17 22:36 Dose: Not Given Ondansetron HCl (Zofran Odt) 4 mg PO Q6H PRN PRN Reason: Nausea/Vomiting Ondansetron HCl (Zofran) 4 mg IVP Q6H PRN PRN Reason: Nausea/Vomiting Last Admin: 02/08/17 11:45 Dose: 4 mg Pantoprazole Sodium (Protonix) 40 mg IVP Q12HR [facility] Last Admin: 02/10/17 22:12 Dose: 40 mg Pentoxifylline (Trental) 400 mg PO BID [facility] Last Admin: 02/10/17 22:12 Dose: 400 mg Phenol (Chloraseptic [place] 180 Ml Bot) 0 ml PO PRN PRN PRN Reason: Sore Throat Rosuvastatin Calcium (Crestor) 5 mg PO HS [facility] Last Admin: 02/10/17 22:12 Dose: 5 mg Saccharomyces Boulardii (Florastor) 250 mg PO BID [facility] Last Admin: 02/10/17 22:12 Dose: 250 mg Sodium Bicarbonate (Bicarbonate, Sodium) 650 mg PO BID [facility] Last Admin: 02/10/17 22:12 Dose: 650 mg Sodium Chloride ([place] Nasal [place] 0.65%) 0 ml EA NARE QIDPRN PRN PRN Reason: Nasal Congestion Sodium Chloride (Flush - Normal Saline) 10 ml IVF Q12HR [facility] Last Admin: 02/10/17 22:13 Dose: 10 ml Sodium Chloride (Flush - Normal Saline) 10 ml IVF PRN PRN PRN Reason: Saline Flush Last Admin: 02/10/17 09:27 Dose: 10 ml Zolpidem Tartrate (Ambien) 5 mg PO HSPRN PRN PRN Reason: Insomnia
[2017-02-11] MEDS: Nitroglycerin 2% Ointment 1 INCH/1 GM Packet TOP SCH ×2 (10:17→15:49)
[2017-02-11] MEDS: [UNRECOGNIZED DRUG - OTHER] IV SCH ×2 (10:20→22:07)
[2017-02-11] MEDS: POTASSIUM CHLORIDE IV SCH ×2 (10:20→22:07)
[2017-02-11] MEDS: SODIUM BICARBONATE IV SCH ×2 (10:20→22:07)
[2017-02-11] MEDS: Gabapentin 300 MG CAP PO SCH ×3 (10:27→21:56)
[2017-02-11] MEDS: Multivitamin W/ Minerals 1 TAB PO SCH (10:28)
[2017-02-11] MEDS: Mesalamine DR 400 mg Capsule PO SCH ×4 (10:28→21:59)
[2017-02-11] MEDS: Escitalopram Oxalate 10 mg Tablet PO SCH (10:28)
[2017-02-11] MEDS: Cilostazol 100 MG TAB PO SCH ×2 (10:28→15:46)
[2017-02-11] MEDS: Metoprolol Tartrate 50 MG TAB PO SCH ×2 (10:29→23:09)
[2017-02-11] MEDS: Saccharomyces boulardii 250 MG CAP PO SCH ×2 (10:29→23:11)
[2017-02-11] MEDS: Pantoprazole 40 MG VIAL IVP SCH ×2 (10:30→21:36)
[2017-02-11] MEDS: Aspirin 325 MG TAB PO SCH (10:30)
[2017-02-11] MEDS: Enoxaparin Sodium 80 MG/0.8 ML SYRINGE SC SCH ×2 (10:42→21:35)
[2017-02-11] MEDS: Sodium Bicarbonate Tab 325 MG TAB PO SCH ×2 (11:06→23:22)
[2017-02-11] MEDS: Morphine 4 MG/ML VIAL SLOW IVP PRN ×2 (11:10→15:31)
[2017-02-11] MEDS ORDERED: Sterile Water 10 ML ONE (12:45)
[2017-02-11] MEDS ORDERED: Sodium Chloride 0.9% 0 ML ONE (12:46)
[2017-02-11 12:51] VITALS: BMI 25.4
[2017-02-11] MEDS: Ondansetron HCl/PF 4 MG/2 ML Vial IVP PRN (14:31)
[2017-02-11] MEDS ORDERED: Iopamidol 370 76% 100 ML VIAL ONE (17:07)
--- NOTE | 2017-02-11 18:49 | CT ---
CT ABDOMEN AND PELVIS WITH AND WITHOUT IV CONTRAST: History: Crohn's disease. Abdominal pain. Abnormal CT scan. Comparison: 02-04-17 FINDINGS: Bibasilar lung atelectasis has increased slightly. There is a small amount of bilateral pleural fluid . Calcification adjacent to the gallbladder neck is favored to be vascular in origin. There is prominent calcification throughout the arterial structures. Fusiform dilatation of the lower abdominal aorta is similar in appearance to the previous exam. Arterial phase images show significan t narrowing of the lumen of the superior mesenteric artery and absence of significant flow within the inferior mesenteric artery. Extensive patient motion artifact limits detail. Circumferential wall thickening involving the cecum is less pronounced than on the previous study. On the arterial phase images, the vigorous enhancement on the previous exam is less apparent. No free air is apparent. No focal abscess. No degenerative ch anges of the lumbar spine and hips. Since the prior study, there has been some nonspecific thickening and edema involving the right later al flank subcutaneous tissues and deep muscles. Cause is not evident. IMPRESSION: 1. Atherosclerosis with significant narrowing of the superior mesenteric and inferior mesenteric miky eusebia. 2. Fusiform lower abdominal aortic aneurysm is stable. 3. Interval development of small bilateral pleural effusions with increasing bibasilar atelectasis. 4. Inflammation involving the cecum is less pronounced than on the prior CT from 02-04-17. POS: JONAS
[2017-02-11] MEDS ORDERED: Communication Order-Pharmacy FS SCH (19:00)
[2017-02-11] MEDS: Sodium Chloride 0.9% 1,000 ML IV SCH (23:09)
[2017-02-11] MEDS: Mirtazapine 15 MG TAB PO SCH (23:22)
[2017-02-12] MEDS: Nitroglycerin 2% Ointment 1 INCH/1 GM Packet TOP SCH ×2 (00:09→06:30)
[2017-02-12] MEDS: POTASSIUM CHLORIDE IV SCH (01:53)
[2017-02-12] MEDS: [UNRECOGNIZED DRUG - OTHER] IV SCH (01:53)
[2017-02-12] MEDS: SODIUM BICARBONATE IV SCH (01:53)
[2017-02-12 04:20] VITALS: BP 113/70; TEMP 98.6
[2017-02-12 05:29] LABS: Anion Gap 16 mmol/L (10-20); BUN (Urea Nitrogen) 28 mg/dL (9.8-20.1); Calc. Creatinine Clearance 36 mL/min (70-130); Calcium 7.6 mg/dL (7.8-10.44); Carbon Dioxide 13 mmol/L (23-31); Chloride 122 mmol/L (98-107); Estimated GFR-MDRD 41
[2017-02-12] MEDS: Metoprolol Tartrate 50 MG TAB PO SCH (06:29)
[2017-02-12] MEDS: Aspirin 325 MG TAB PO SCH ×2 (06:29→06:32)
[2017-02-12] MEDS ORDERED: Heparin 10,000 UNITS/1 ML VIAL ONE (06:32)
[2017-02-12] MEDS ORDERED: Heparin 1000 UNIT/NS 500ML(OR) 500 ML ONE ×3 (06:32→08:05)
[2017-02-12] MEDS: Gabapentin 300 MG CAP PO SCH (06:32)
[2017-02-12] MEDS: Cilostazol 100 MG TAB PO SCH (06:32)
[2017-02-12] MEDS: Escitalopram Oxalate 10 mg Tablet PO SCH ×2 (06:33→06:35)
[2017-02-12] MEDS: Sodium Chloride 0.9% 1,000 ML IV SCH (06:34)
[2017-02-12] MEDS: Saccharomyces boulardii 250 MG CAP PO SCH (06:35)
[2017-02-12] MEDS ORDERED: Midazolam HCl 2 mg/2 ml Vial ONE (07:13)
[2017-02-12] MEDS ORDERED: Clopidogrel Bisulfate 300 MG TAB ONE (08:03)
[2017-02-12] MEDS ORDERED: Nitroglycerin 100MG/250ML BOT 250 ML ONE (08:04)
[2017-02-12] MEDS ORDERED: Bivalirudin 250 MG VIAL ONE (08:33)
[2017-02-12] MEDS ORDERED: Sodium Chloride 0.9% 1,000 ML IV SCH (09:08)
--- NOTE | 2017-02-12 10:18 | HP ---
DATE OF SERVICE: 02/11/2017 HISTORY OF PRESENT ILLNESS: Ms. Robert decided that she was going to have a heart cath; however, it is not scheduled for today and they are debating on transferring her to a facility where her primary program project manager is. She still complains of abdominal pain when she eats mainly across the upper abdomen now. She still has diarrhea. PHYSICAL EXAMINATION: VITAL SIGNS: Temperature 97.2-98, pulse 68, blood pressure 143/76. LUNGS: Clear. HEART: Regular rate and rhythm. ABDOMEN: The abdomen is soft and nontender. There is no rebound. There is no guarding. LABORATORY: White count 9.7, hemoglobin 8.5, platelet count 263, lipase 42. ASSESSMENT: 1. Crohn's disease. 2. Peripheral vascular disease and history of coronary artery disease. 3. 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 4. As far as her abdominal pain, it is unclear if this is related to her Crohn's. She is using quit e a bit of morphine. Differential diagnosis would include her Crohn's disease because in the upper a bdomen angina is a concern, but it is meal related, intestinal angina could be a concern. I was conc erned about pancreatitis, there are no signs of this. PLAN: We will get a CT enterography. If this is negative, it may be reasonable to consider mesenter ic angiogram with her peripheral vascular disease, chronic pancreatitis would be a concern as well in light of her diarrhea after eating.
--- NOTE | 2017-02-12 11:49 | PDOC.PN ---
- Subjective Encounter Start Date: 02/12/17 Encounter Start Time: 08:50 Patient seen and examined. No chest pain, has diarrhoea. No overnight events pt had cardiac cath today - Objective Resuscitation Status: Resuscitation Status FULL:Full Resuscitation MAR Reviewed: Yes Vital Signs & Weight: Vital Signs (12 hours) Temp Pulse Resp BP Pulse Ox 02/12/17 04:00 98.6 F 59 L 14 113/70 93 L 02/12/17 00:00 68 18 118/67 Weight Admit Weight 114 lb Weight 139 lb I&O: 02/11/17 02/12/17 02/13/17 06:59 06:59 06:59 Intake Total 2690 3979 Output Total 400 Balance 2290 3979 Result Diagrams: 02/11/17 04:21 02/12/17 04:16 EKG Reviewed by me: Yes (nsr) Phys Exam - Physical Examination Constitutional: NAD HEENT: PERRLA, moist MMs, sclera anicteric Neck: no JVD, supple Respiratory: no wheezing, no rales, no rhonchi Cardiovascular: RRR, no significant murmur, no rub Gastrointestinal: soft, non-tender, no distention, positive bowel sounds Musculoskeletal: no edema, pulses present right AKA Neurological: non-focal Lymphatic: no nodes Psychiatric: normal affect Skin: no rash, normal turgor Dx/Plan (1) NSTEMI (non-ST elevated myocardial infarction) Code(s): I21.4 - NON-ST ELEVATION (NSTEMI) MYOCARDIAL INFARCTION Status: Acute (2) Hypophosphatemia Code(s): E83.39 - OTHER DISORDERS OF PHOSPHORUS METABOLISM Status: Resolved (3) Hypomagnesemia Code(s): E83.42 - HYPOMAGNESEMIA Status: Resolved (4) Acidosis, hyperchloremic Code(s): E87.2 - ACIDOSIS Status: Acute Comment: due to diarrhoea (5) Exacerbation of Crohn's disease Code(s): K50.90 - CROHN'S DISEASE, UNSPECIFIED, WITHOUT COMPLICATIONS Status: Acute (6) Hypokalemia Code(s): E87.6 - HYPOKALEMIA Status: Resolved (7) UTI (urinary tract infection) Status: Acute (8) Anemia of chronic disease Code(s): D63.8 - ANEMIA IN OTHER CHRONIC DISEASES CLASSIFIED ELSEWHERE Status : Chronic (9) Anxiety and depression Code(s): F41.8 - OTHER SPECIFIED ANXIETY DISORDERS Status: Chronic (10) CREST syndrome Code(s): M34.1 - CR(E)ST SYNDROME Status: Chronic (11) Chronic obstructive pulmonary disease Status: Chronic (12) Dyslipidemia Code(s): E78.5 - HYPERLIPIDEMIA, UNSPECIFIED Status: Chronic (13) H/O above knee amputation Code(s): Z89.619 - ACQUIRED ABSENCE OF UNSPECIFIED LEG ABOVE KNEE Status: Chronic Qualifiers: Laterality: right Qualified Code(s): Z89.611 - Acquired absence of right leg above knee (14) Peripheral vascular disease Code(s): I73.9 - PERIPHERAL VASCULAR DISEASE, UNSPECIFIED Status: Chronic (15) Protein-calorie malnutrition, moderate Code(s): E44.0 - MODERATE PROTEIN-CALORIE MALNUTRITION Status: Chronic (16) Stasis ulcer of left lower extremity Code(s): I83.029 - VARICOSE VEINS OF LEFT LOWER EXTREMITY W ULCER OF UNSP SITE Status: Chronic Comment: (17) Vitamin D deficiency Code(s): E55.9 - VITAMIN D DEFICIENCY, UNSPECIFIED Status: Chronic (18) Combined systolic and diastolic cardiac dysfunction Code(s): I51.89 - OTHER ILL-DEFINED HEART DISEASES Status: Acute (19) Severe tricuspid regurgitation Code(s): I07.1 - RHEUMATIC TRICUSPID INSUFFICIENCY Status: Chronic - Plan cont current plan of care, plan discussed w/ family, continue antibiotics * medication reviewed as below * symptomatic treatment * medically stable with current treatment * discussed with family * continue IVF * continue levaquin * continue solumderol * diarrhoea treatment will defer to GI. Review of Systems - Review of Systems Constitutional: negative: Fever, Chills, Sweats, Weakness, Malaise, Other ENT: negative: Ear Pain, Ear Discharge, Nose Pain, Nose Discharge, Nose Congestion, Mouth Pain, Mouth Swelling, Throat Pain, Throat Swelling, Other Respiratory: negative: Cough, Dry, Shortness of Breath, Hemoptysis, SOB with Excertion, Pleuritic Pain, Sputum, Wheezing Cardiovascular: negative: Chest Pain, Palpitations, Orthopnea, Paroxysmal Noc. Dyspnea, Edema, Light Headedness, Other Gastrointestinal: Diarrhea. negative: Nausea, Vomiting, Abdominal Pain, Constipation, Melena, Hematochezia, Other Genitourinary: negative: Dysuria, Frequency, Incontinence, Hematuria, Retention , Other Musculoskeletal: negative: Neck Pain, Shoulder Pain, Arm Pain, Back Pain, Hand Pain, Leg Pain, Foot Pain, Other - Medications/Allergies Allergies/Adverse Reactions: Allergies Allergy/AdvReac Type Severity Reaction Status Date / Time Milk Containing Products Allergy Verified 02/11/17 11:15 No Known Drug Allergies Allergy Verified 01/18/17 16:32 Medications: Current Medications Acetaminophen (Tylenol) 650 mg PO Q4H PRN PRN Reason: Headache/Fever or Pain Hydrocodone Bitart/Acetaminophen ([place] 5/325) 1 tab PO Q4H PRN PRN Reason: Moderate Pain (4-6) Last Admin: 02/10/17 10:08 Dose: 1 tab Al Hydroxide/Mg Hydroxide (Maalox) 30 ml PO Q6H PRN PRN Reason: Heartburn or Indigestion Last Admin: 02/05/17 14:22 Dose: 30 ml Artificial Tears (Tears Renewed 15ml Bottle) 0 drop EA EYE PRN PRN PRN Reason: Dry Eyes Aspirin (Aspirin) 325 mg PO DAILY [facility] Last Admin: 02/12/17 06:32 Dose: 325 mg Carvedil[facility] (Coreg) [facility] Cilostazol (Pletal) 50 mg PO DAILY [facility] Last Admin: 02/12/17 06:32 Dose: 50 mg Dicyclomine HCl (Bentyl) 10 mg IM QID PRN PRN Reason: GI Cramping Last Admin: 02/08/17 15:20 Dose: 10 mg Escitalopram Oxalate (Lexapro) 10 mg PO DAILY [facility] Last Admin: 02/12/17 06:35 Dose: 10 mg Gabapentin (Neurontin) 300 mg PO TID [facility] Last Admin: 02/12/17 06:32 Dose: 300 mg Guaifenesin (Robitussin Sf) 200 mg PO Q4H PRN PRN Reason: Cough Hydralazine HCl (Apresoline) 10 mg SLOW IVP Q4H PRN PRN Reason: Systolic BP > 180 Levofloxacin 500 mg/ Device 100 mls @ 100 mls/hr IVPB 1500 [facility] Last Admin: 02/11/17 15:33 Dose: 100 mls Potassium Chloride 10 meq/Sodium Bicarbonate 50 meq/Dextrose/Sodium Chloride 1, 055 mls @ 100 mls/hr IV .[id number] [facility] Last Admin: 02/12/17 01:53 Dose: Not Given Sodium Chloride (Normal Saline 0.9%) 1,000 mls @ 125 mls/hr IV .Q8H [facility] Stop: 02/12/17 15:00 Iron/Minerals/Multivitamins (Theragran M) 1 tab PO DAILY [facility] Last Admin: 02/11/17 10:28 Dose: 1 tab Lisinopril (Zestril) 5 mg PO DAILY [facility] Loperamide HCl (Imodium) 2 mg PO PRN PRN PRN Reason: Diarrhea/Loose Stools Last Admin: 02/10/17 22:12 Dose: 2 mg Loratadine (Claritin) 10 mg PO DAILYPRN PRN PRN Reason: Sinus Symptoms Mesalamine (Delzicol Dr) 800 mg PO TID [facility] Last Admin: 02/11/17 21:59 Dose: 800 mg Methylprednisolone Sodium Succinate (Solu-Medrol) 40 mg IVP Q8HR [facility] Last Admin: 02/12/17 06:31 Dose: 40 mg Mineral Oil/White Petrolatum (Eucerin Cream) 0 gm TOP BIDPRN PRN PRN Reason: Dry Skin Mirtazapine (Remeron) 15 mg PO HS [facility] Last Admin: 02/11/17 23:22 Dose: 15 mg Morphine Sulfate (Morphine) 4 mg SLOW IVP Q4H PRN PRN Reason: Pain Last Admin: 02/11/17 15:31 Dose: 4 mg Nitroglycerin (Nitrostat) 0.4 mg SL Q5MIN PRN PRN Reason: Chest Pain Last Admin: 02/08/17 17:05 Dose: 0.4 mg Nitroglycerin (Nitro-Bid 2% Ointment) 0.5 inch TOP Q8H [facility] Last Admin: 02/12/17 06:30 Dose: 0.5 inch Ondansetron HCl (Zofran Odt) 4 mg PO Q6H PRN PRN Reason: Nausea/Vomiting Ondansetron HCl (Zofran) 4 mg IVP Q6H PRN PRN Reason: Nausea/Vomiting Last Admin: 02/11/17 14:31 Dose: 4 mg Pantoprazole Sodium (Protonix) 40 mg IVP Q12HR [facility] Last Admin: 02/11/17 21:36 Dose: 40 mg Pentoxifylline (Trental) 400 mg PO BID [facility] Last Admin: 02/11/17 23:39 Dose: 400 mg Phenol (Chloraseptic [place] 180 Ml Bot) 0 ml PO PRN PRN PRN Reason: Sore Throat Rosuvastatin Calcium (Crestor) 5 mg PO HS [facility] Last Admin: 02/11/17 23:22 Dose: 5 mg Saccharomyces Boulardii (Florastor) 250 mg PO BID [facility] Last Admin: 02/12/17 06:35 Dose: 250 mg Sodium Bicarbonate (Bicarbonate, Sodium) 650 mg PO BID [facility] Last Admin: 02/11/17 23:22 Dose: 650 mg Sodium Chloride ([place] Nasal [place] 0.65%) 0 ml EA NARE QIDPRN PRN PRN Reason: Nasal Congestion Sodium Chloride (Flush - Normal Saline) 10 ml IVF Q12HR [facility] Last Admin: 02/11/17 23:23 Dose: 10 ml Sodium Chloride (Flush - Normal Saline) 10 ml IVF PRN PRN PRN Reason: Saline Flush Last Admin: 02/11/17 15:32 Dose: 10 ml Zolpidem Tartrate (Ambien) 5 mg PO HSPRN PRN PRN Reason: Insomnia
[2017-02-12] MEDS ORDERED: Lidocaine 2% Jelly 5 ML TUBE ONE (12:00)
[2017-02-12] MEDS ORDERED: Sodium Bicarb 50 MEQ/50 ML Abboject 8.4% SYRINGE ONE (12:00)
[2017-02-12] MEDS ORDERED: Calcium Chloride 1 GM/10 ML Abboject SYRINGE ONE (12:00)
[2017-02-12] MEDS ORDERED: EPINEPHrine 1 MG/10 ML Abboject SYRINGE ONE (12:00)
[2017-02-12] MEDS ORDERED: Atropine Sulfate 1 mg/10 ml Syringe ONE (12:00)
[2017-02-12] MEDS ORDERED: Morphine 4 MG/ML VIAL ONE (13:30)
--- NOTE | 2017-02-12 16:41 | EKG ---
Test Reason : POST STENTS X 2-RCA Blood Pressure : / mmHG Vent. Rate : 062 BPM Atrial Rate : 062 BPM P-R Int : 126 ms QRS Dur : 076 ms QT Int : 404 ms P-R-T Axes : 075 077 123 degrees QTc Int : 410 ms Normal sinus rhythm Low voltage QRS Nonspecific ST and T wave abnormality Abnormal ECG Confirmed by GEORGIA SOLIS ([id number]) on 02/12/2017 4:41:05 PM Referred By: HERMAN Confirmed By:GEORGIA SOLIS
[2017-02-12] MEDS ORDERED: DOPamine 400 MG/D5W 250 ML 250 ML ONE (16:59)
[2017-02-12] MEDS ORDERED: Carvedilol 6.25 MG TAB PO SCH (17:00)
[2017-02-12] MEDS ORDERED: Iopamidol 370 76% 50 ML VIAL FS ONE (17:05)
[2017-02-12] MEDS ORDERED: Iopamidol 370 76% 100 ML VIAL ONE (17:05)
--- NOTE | 2017-02-12 17:10 | CCL ---
CARDIAC CATHETERIZATION REPORT: Date: 02/12/17 PROCEDURE: Left heart catheterization, selective arteriography, left ventriculography, bypass graft angiography, SOLITARIO injection, stent placement in the right coronary artery, and intracoronary nitroglycerin administration. INDICATION: Non STEMI. DESCRIPTION OF PROCEDURE: The patient was brought to the cardiac microbiology lab manager. Both groins were prepped and draped. No pulse was felt in the right femoral artery (right AKA amputation). A very faint pulse was felt in the left femoral artery and ultrasound was used to guide entry. A 6 [place] sheath was then placed into the left femoral artery and all further catheter exchanges were performed over a wire. Heparin 3,000 units given. A 6 [place] angulated pigtail was inserted and pressures were obtained. Left ventriculogram was performed using 30 ml of contrast at 12 ml/s in a ALEJO 30 degree projection. Pressures were obtained and the pigtail was removed over a wire. A 6 [place] Bryan left-4 was then used and exchanged over a wire for a 6 [place] Bryan right-4. The right-4 was used to opacify the right coronary artery, occluded grafts, and SOLITARIO. An additional 5,000 units of heparin was given. The right-4 diagnostic was exchanged over a wire for a right-4 guide catheter. This was inserted and a floppy Choice wire was advanced to the distal right coronary artery. Emerge 2.0 x 20 mm balloon was then used to predilated the area. The entire mid right coronary artery was predilated. This was removed and Emerge 2.5 x 20 mm balloon was used to further predilate. The patient was given 600 mg of Plavix. Intracoronary nitroglycerin was given. Rebel 2.25 x 20 mm stent was then positioned in the mid right coronary artery and deployed. Rebel 2.5 x 24 mm stent was then positioned and deployed. Final result was excellent. Sheath was sutured in place. During the procedure, there was difficulty in obtaining an ACT, so the decision was made to transition to Angiomax. The catheters were removed and the patient was transferred to PCU. RESULTS: PRESSURES: Aorta 160/75, mean of 108 Left Ventricle 162/24 LEFT VENTRICULOGRAM: There was severe global hypokinesis with ejection fraction of 25-30% and moderate mitral regurgitation. CORONARY ARTERIOGRAPHY: 1. The left main had a 50% stenosis. 2. The LAD was totally occluded in its mid portion. 3. The circumflex had a 50% proximal lesion. A branch to the first obtuse marginal was totally occluded and an occluded graft segment could be seen anastomosed to this. 4. The right coronary artery had a diffusely diseased mid portion. There was a 70% and an 80% mid RCA lesion. BYPASS GRAFTS: 1. The SOLITARIO to the LAD was patent. 2. The obtuse marginal was occluded. 3. The right coronary artery graft was occluded. IMPRESSION: 1. Left main plus three vessel coronary artery disease. 2. One of three bypass grafts patent. 3. Severe left ventricular dysfunction. 4. Moderate mitral regurgitation. 5. Successful bare metal stent in the mid RCA. [facility]
[2017-02-12] MEDS ORDERED: Norepinephrine 4 MG/4 ML VIAL ONE (17:19)
[2017-02-13] MEDS ORDERED: Lisinopril 5 MG TAB PO SCH (09:00)
[2017-02-13] MEDS ORDERED: Aspirin 81 mg Enteric Coated Tablet PO SCH (09:00)
--- NOTE | 2017-02-13 12:35 | EKG ---
Test Reason : STAT-CODE BLUE Blood Pressure : / mmHG Vent. Rate : 129 BPM Atrial Rate : 129 BPM P-R Int : 190 ms QRS Dur : 078 ms QT Int : 312 ms P-R-T Axes : 080 076 125 degrees QTc Int : 457 ms Sinus tachycardia with Premature atrial complexes ST elevation consider inferior injury or acute infarct ACUTE OK / STEMI Abnormal ECG Confirmed by GEORGIA SOLIS ([id number]) on 02/13/2017 12:35:34 PM Referred By: HERMAN Confirmed By:GEORGIA SOLIS
--- NOTE | 2017-02-13 13:42 | DS ---
DATE OF ADMISSION: 02/04/2017 DATE OF : 02/12/2017 PRIMARY CAUSE OF : Acute systolic and diastolic heart failure, non-ST elevation myocardial infa rction, exacerbation of Crohn's disease, urinary tract infection. CONTRIBUTING DIAGNOSES: Left main plus three-vessel coronary artery disease, abnormal electrolytes, hyperchloremic metabolic acidosis, chronic obstructive pulmonary disease, peripheral vascular disease , severe tricuspid regurgitation, and moderate protein calorie malnutrition. PRIMARY PROCEDURES/OPERATION: Cardiac catheterization was performed by Dr. Grewal and patient was found with left main plus 3-vessel CAD, only 1 graft was patent, bare metal stent was placed in RCA. RADIOLOGICAL INVESTIGATION: CT of the abdomen and pelvis, echocardiography. SIGNIFICANT LABORATORY DATA: : Creatinine 1.26. Hemoglobin 8.5. SHORT HOSPITAL SUMMARY: A 77-year-old female, who was admitted by me on 02/04/2017. Please see my H PI for further detail. On admission, she was having severe dehydration from nausea, vomiting, and diarrhea. She was also ervin ving sepsis due to urinary tract infection. She also had abnormal electrolytes as well as hyperchlor emic metabolic acidosis due to diarrhea. She was suffering from Crohn's disease exacerbation with se jhonny diarrhea. On top, the patient also has multiple medical problem including peripheral vascular d isease with right above knee amputation, hypertension, protein calorie malnutrition, peripheral neuro aleksander, CREST syndrome, COPD, coronary artery disease with CABG, and physical deconditioning. She was initially admitted to medical floor. She was treated with Rocephin, Levaquin, and Flagyl. W e did stool for infection workup that was unremarkable. Her abnormal electrolytes was corrected whil e in hospital. We consulted a psychiatric specialist. We treated her Crohn's exacerbation with IV stero id and empiric antibiotic therapy. Even after steroid therapy, the patient did not have any improvem ent. We sent TB Quantiferon test and we deferred further treatment plan for the GI. GI was planning to do CT enterography for further evaluation. She already had recently upper and lower endoscopy, d id not require any procedure for that problem. Her diarrhea was somewhat controlled, but not optimal ly. On medical floor, she developed a chest pain and upper abdominal pain and we did EKG, which was abnor mal and that is why we transferred her to telemetry floor where we consulted Cardiology and patient's troponin came back as non-STEMI range. Echocardiography showed systolic and diastolic dysfunction a nd her BNP was elevated. Initially, this patient was refusing to go for cardiac catheterization, but ultimately she decided to go for cardiac catheterization, and Dr. Grewal did cardiac catheterizati on and one bare metal stent was placed in one of the valve. The patient was in PACU and I saw this patient earlier, at that time, patient was talking and patient 's son was also there, and in the evening time, patient had code blue and Anesthesia and Cardiology a ttended that code blue, but patient did not survive. was pronounced and the body was released for .
== END 2017-02-12 20:42 | disposition expired | DRG 981 ==
LOC: ERS 09:47 → T4-B 15:16 → 2NO 02-08 18:10
PROVIDERS: ADMIT Internal Medicine; ATTEND Internal Medicine
PROC: 5A2204Z Restoration of Cardiac Rhythm, Single (ICD-10-PCS; principal; 2017-02-12)
PROC: 02703EZ Dilation of Coronary Artery, One Artery with Two Intraluminal Devices, Percutaneous Approach (ICD-10-PCS; 2017-02-12)
PROC: 5A12012 Performance of Cardiac Output, Single, Manual (ICD-10-PCS; 2017-02-12)
PROC: 4A023N7 Measurement of Cardiac Sampling and Pressure, Left Heart, Percutaneous Approach (ICD-10-PCS; 2017-02-12)
PROC: B2131ZZ Fluoroscopy of Multiple Coronary Artery Bypass Grafts using Low Osmolar Contrast (ICD-10-PCS; 2017-02-12)
PROC: B2151ZZ Fluoroscopy of Left Heart using Low Osmolar Contrast (ICD-10-PCS; 2017-02-12)
PROC: B2111ZZ Fluoroscopy of Multiple Coronary Arteries using Low Osmolar Contrast (ICD-10-PCS; 2017-02-12)
PROC: 0BH17EZ Insertion of Endotracheal Airway into Trachea, Via Natural or Artificial Opening (ICD-10-PCS; 2017-02-12)
PROC: 5A1935Z Respiratory Ventilation, Less than 24 Consecutive Hours (ICD-10-PCS; 2017-02-12)
DX: T83.518A Infection and inflammatory reaction due to other urinary catheter, initial encounter (principal); I21.4 Non-ST elevation (NSTEMI) myocardial infarction; A41.89 Other specified sepsis; I50.41 Acute combined systolic (congestive) and diastolic (congestive) heart failure; E44.0 Moderate protein-calorie malnutrition; E87.2 Acidosis; N18.3 Chronic kidney disease, stage 3 (moderate); M34.1 CR(E)ST syndrome; K50.918 Crohn's disease, unspecified, with other complication; I47.1 Supraventricular tachycardia; N39.0 Urinary tract infection, site not specified; I13.0 Hypertensive heart and chronic kidney disease with heart failure and stage 1 through stage 4 chronic kidney disease, or unspecified chronic kidney disease; I25.810 Atherosclerosis of coronary artery bypass graft(s) without angina pectoris; G62.9 Polyneuropathy, unspecified; J44.9 Chronic obstructive pulmonary disease, unspecified; R19.7 Diarrhea, unspecified; I73.9 Peripheral vascular disease, unspecified; Z89.511 Acquired absence of right leg below knee; E87.6 Hypokalemia; I71.4 Abdominal aortic aneurysm, without rupture; Z95.1 Presence of aortocoronary bypass graft; Z95.828 Presence of other vascular implants and grafts; F41.9 Anxiety disorder, unspecified; F32.9 Major depressive disorder, single episode, unspecified; Z79.01 Long term (current) use of anticoagulants; Z79.82 Long term (current) use of aspirin; Z79.52 Long term (current) use of systemic steroids; Z87.891 Personal history of nicotine dependence; D63.8 Anemia in other chronic diseases classified elsewhere; R62.7 Adult failure to thrive; Z68.26 Body mass index [BMI] 26.0-26.9, adult; E78.5 Hyperlipidemia, unspecified; E86.0 Dehydration; Z90.10 Acquired absence of unspecified breast and nipple; I08.1 Rheumatic disorders of both mitral and tricuspid valves; B96.1 Klebsiella pneumoniae [K. pneumoniae] as the cause of diseases classified elsewhere; E83.39 Other disorders of phosphorus metabolism; E83.42 Hypomagnesemia; I83.028 Varicose veins of left lower extremity with ulcer other part of lower leg; E55.9 Vitamin D deficiency, unspecified; I46.9 Cardiac arrest, cause unspecified
CPT/HCPCS: 36415; 51701; 74020; 74177; 74178; 76942; 80048; 80053; 80061; 81003; 81015; 82553; 83605; 83690; 83735; 83880; 84100; 84484; 85025; 85347; 86140; 86480; 86704; 86706; 86803; 87040; 87045; 87046; 87070; 87077; 87086; 87186; 87205; 87324; 87328; 87329; 87340; 87449; 87899; 90471; 90682; 92928; 93005; 93010; 93306; 93459; 96361; 96365; 96367; 96375; 99152; 99153; A4216; A4353; C1725; C1769; C1876; C1887; C9113; G0008; G8981-GP-CJ; G8982-GP-CH; G8996-GN-CI; G8997-GN-CH; J0171; J0461; J0583; J0696; J1265; J1644; J1650; J1956; J2250; J2270; J2405; J2920; J3475; J3480; J7042; J7050; Q2036; S0028